=== PATIENT | male | born 1940 | race Caucasian/White ===

== ENCOUNTER → 2016-07-30 | Outpatient (CLI) | payer OTHER ==
[~2016-07-30] MED LIST: AMLO-110 PO; ASCO1CAP3 PO; CALC500C3 PO; CARB0.5D28 OPB; FINA5TAB PO; FLUT0.15 INTNAS; PRD/1 PO; TAMS0.4C38 PO; TYLER650 PO
== END | disposition home or self-care (01) ==
LOC: C.RDSM 13:00
PROVIDERS: ATTEND Physical Medicine & Rehabilitation Sports Medicine
DX: Z96.642 Presence of left artificial hip joint (principal)

== ENCOUNTER → 2016-10-29 | Outpatient (CLI) | payer OTHER | END | disposition home or self-care (01) | LOC: C.RDSM 13:55 | PROVIDERS: ATTEND Physical Medicine & Rehabilitation Sports Medicine | DX: M25.561 Pain in right knee (principal); M25.562 Pain in left knee ==

== ENCOUNTER → 2016-12-05 | Outpatient (CLI) | payer OTHER ==
--- NOTE | 2016-12-05 10:12 | DIAGNOSTIC IMAGING REPORT ---
KUB CLINICAL HISTORY: N39.0 UTI (urinary tract infection)[id number] nephrocalcinosis COMPARISON STUDY: 06/01/2016 FINDINGS: The soft tissues, psoas shadows, renal outlines and intestinal gas pattern appear normal. There is no evidence for bowel obstruction. No abnormal abdominal calcifications are seen. IMPRESSION: Normal study. Electronically signed by: Aubrey Andujar M.D. 12/05/2016 10:10 AM Dictated Date/Time: 12/05/2016 10:09 AM
[2016-12-05 14:24] LABS: BLOOD UREA NITROGEN 17 mg/dl (7-18); BUN/CREATININE RATIO 18.6 (10-20); CREATININE 0.92 mg/dl (0.60-1.40)
--- NOTE | 2016-12-17 11:09 | CODING QUERY MEDICAL NECESSITY ---
SUPPORTING DIAGNOSIS NEEDED Dr. Contreras, A supporting diagnosis is required for the test/procedure performed on this patient in order for us to be reimbursed by the patient's insurance. Please provide a supporting diagnosis for the following test/procedure listed below next to the test name along with your signature. *If there is no additional diagnosis for this patient that would support the following test/procedure please document that below next to the test/procedure. Test(s)/Procedure(s) that require a supporting diagnosis: * [id number] PSA DIAGNOSIS: DATE OF SERVICE: 12/05/16 Provider Signature: Date: Thank you Keith Dumont [facility] Information Management Once completed, please kindly fax back to [phone] For questions please call [phone]
== END | disposition home or self-care (01) ==
LOC: C.RADBC 09:35
PROVIDERS: ATTEND Urology
DX: N39.0 Urinary tract infection, site not specified (principal); N40.1 Benign prostatic hyperplasia with lower urinary tract symptoms

== ENCOUNTER → 2017-05-07 | Outpatient (CLI) | payer OTHER ==
[2017-05-07 10:49] LABS: HEMATOCRIT 33.2 % (42-52); MEAN CELL VOLUME 81.8 fL (80-100); MEAN CORPUSCULAR HEMOGLOBIN 25.4 pg (25-34); MEAN PLATELET VOLUME 8.8 fL (7.4-10.4); PLATELET COUNT 263 K/uL (130-400); RED BLOOD COUNT 4.06 M/uL (4.7-6.1); WHITE BLOOD COUNT 8.42 K/uL (4.8-10.8)
[2017-05-07 11:10] LABS: ALT/SGPT 13 U/L (12-78); AST/SGOT 8 U/L (15-37); BLOOD UREA NITROGEN 21 mg/dl (7-18); BUN/CREATININE RATIO 26.8 (10-20); CALCIUM 9.2 mg/dl (8.5-10.1); CARBON DIOXIDE 28 mmol/L (21-32); CHLORIDE 103 mmol/L (98-107); CREATININE 0.77 mg/dl (0.60-1.40); GLUCOSE 94 mg/dl (70-99); POTASSIUM 3.5 mmol/L (3.5-5.1); SODIUM 136 mmol/L (136-145)
[2017-05-07 11:23] LABS: ALB/GLOB RATIO 0.8 (0.9-2); ALKALINE PHOSPHATASE 83 U/L (45-117); IMMUNOGLOBULN A 46.2 mg/dL (70-400)
[2017-05-09 05:20] LABS: ALBUMIN 3.3 G/DL (3.8-4.8); FREE KAPPA 186.7 MG/L (3.3-19.4); FREE KAPPA/LAMBDA RATIO 24.57 (0.26-1.65); FREE LAMBDA 7.6 MG/L (5.7-26.3); GAMMA GLOBULIN 0.7 G/DL (0.8-1.7); IMMUNOFIXATION IGA SERUM 50 MG/DL (81-463); IMMUNOFIXATION IGG SERUM 666 MG/DL (694-1618); IMMUNOFIXATION IGM SERUM 230 MG/DL (48-271); MONOCLONAL PROTEIN BAND 1 0.3 G/DL (NOT DETECTED); TOTAL PROTEIN 6.1 G/DL (6.2-8.3)
== END | disposition home or self-care (01) ==
LOC: C.LABBC 08:30
PROVIDERS: ATTEND Internal Medicine Hematology & Oncology
DX: D47.2 Monoclonal gammopathy (principal)

== ENCOUNTER → 2017-07-08 | Outpatient (CLI) | payer OTHER | END | disposition home or self-care (01) | LOC: C.RDSM 19:19 | PROVIDERS: ATTEND Physical Medicine & Rehabilitation Sports Medicine | DX: M16.12 Unilateral primary osteoarthritis, left hip (principal); Z96.642 Presence of left artificial hip joint; M79.672 Pain in left foot; Z96.659 Presence of unspecified artificial knee joint ==

== ENCOUNTER 2017-10-30 06:10 | Inpatient (IN) | payer OTHER ==
[2017-10-11 11:22] VITALS: BMI 27.0
--- NOTE | 2017-10-11 12:08 | PAT Medication Instructions ---
Service Date October 11, 2017. Current Home Medication List Acetaminophen (Tylenol), 1,000 MG PO BID Amlodipine (Norvasc), 5 MG PO QAM Ascorbic Acid (Vitamin C), 500 MG PO QAM Calcium Carbonate (Tums), 500 MG PO PRN Carboxymethylcellulose Sodium (Refresh Tears), 1 DROP OPB BID Finasteride (Proscar), 5 MG PO HS Fpltdyybphz-Mygprwninxj-Lze C- (Glucosamine Chondroitin), 1 TAB PO BID Meloxicam (Mobic), 7.5 MG PO QAM Ocuvite Preservision (Ocuvite Preservision), 1 TAB PO QAM Prednisone (Prednisone), 2 MG PO QAM Medication Instructions For Your Scheduled Surgery -Check with your surgeon's office for instructions for: Meloxicam (Mobic), 7.5 MG PO QAM - Hold the following medications 2 weeks prior to surgery: Dzfaagxquga-Upidlzgygdv-Gqz C- (Glucosamine Chondroitin), 1 TAB PO BID Ocuvite Preservision (Ocuvite Preservision), 1 TAB PO QAM - Hold the following medications the morning of surgery: Ascorbic Acid (Vitamin C), 500 MG PO QAM Calcium Carbonate (Tums), 500 MG PO PRN - Take the following medications the morning of surgery with a sip of water: Acetaminophen (Tylenol), 1,000 MG PO BID (can be taken up to four hours before surgery) Amlodipine (Norvasc), 5 MG PO QAM Carboxymethylcellulose Sodium (Refresh Tears), 1 DROP OPB BID (bring with you to the hospital) Prednisone (Prednisone), 2 MG PO QAM - Take the following medications as scheduled the night before surgery: Acetaminophen (Tylenol), 1,000 MG PO BID Carboxymethylcellulose Sodium (Refresh Tears), 1 DROP OPB BID Finasteride (Proscar), 5 MG PO HS If you have any questions please call us at [phone] or [phone] or [phone]
[2017-10-11 12:35] LABS: BASO % 0.5 %; BASO ABS # 0.05 K/uL (0-0.2); EOS ABS # 0.19 K/uL (0-0.5); HEMATOCRIT 32.6 % (42-52); HEMOGLOBIN 10.4 g/dL (14.0-18.0); IG# 0.04 K/uL (0.00-0.02); LYMPH % 13.9 %; LYMPH ABS # 1.31 K/uL (1.2-3.4); MEAN CELL VOLUME 77.4 fL (80-100); MEAN CORPUSCULAR HEMOGLOBIN 24.7 pg (25-34); MEAN CORPUSCULAR HGB CONC 31.9 g/dl (32-36); MEAN PLATELET VOLUME 8.8 fL (7.4-10.4); MONO % 13.5 %; MONO ABS # 1.27 K/uL (0.11-0.59); NEUT % 69.7 %; NEUT ABS # 6.55 K/uL (1.4-6.5); PLATELET COUNT 291 K/uL (130-400); RED CELL DISTRIBUTION WIDTH CV 17.2 % (11.5-14.5); RED CELL DISTRIBUTION WIDTH SD 49.1 fL (36.4-46.3); WHITE BLOOD COUNT 9.41 K/uL (4.8-10.8)
[2017-10-11 12:46] LABS: PTT PATIENT 27.9 SECONDS (21.0-31.0)
[2017-10-11 12:47] LABS: CALCIUM 9.3 mg/dl (8.5-10.1); CREATININE 0.89 mg/dl (0.60-1.40); POTASSIUM 3.9 mmol/L (3.5-5.1)
--- NOTE | 2017-10-11 12:49 | DIAGNOSTIC IMAGING REPORT ---
CHEST 2 VIEWS ROUTINE CLINICAL HISTORY: PAT preoperative evaluation COMPARISON STUDY: 06/20/2015 FINDINGS: Mild stable cardiomegaly. Lungs are clear. The diaphragms are smooth. IMPRESSION: Mild stable cardia megaly. The above report was generated using voice recognition software. It may contain grammatical, syntax or spelling errors. Electronically signed by: Aubrey Andujar M.D. 10/11/2017 12:48 PM Dictated Date/Time: 10/11/2017 12:48 PM
--- NOTE | 2017-10-11 12:53 | DIAGNOSTIC IMAGING REPORT ---
LATERAL CERVICAL SPINE RADIOGRAPHS, INCLUDING FLEXION AND EXTENSION VIEWS CLINICAL HISTORY: Preoperative evaluation. COMPARISON STUDY: No previous studies for comparison. FINDINGS: There is reversal of the normal cervical lordosis. There is no evidence for instability during flexion or extension. Alignment of the C1-C2 articulation remains anatomic. No fracture is identified on this exam. There is marked disc space narrowing at C4-C5 and mild disc space narrowing at C5-C6. Moderate multilevel facet arthrosis is present. IMPRESSION: 1. No evidence for cervical spine instability. 2. Marked disc space narrowing with moderate osteophytosis at C4-C5. Electronically signed by: Joshua Kirby M.D. 10/11/2017 12:52 PM Dictated Date/Time: 10/11/2017 12:50 PM
--- NOTE | 2017-10-28 16:25 | HISTORY & PHYSICAL EXAMINATION ---
DATE OF ADMISSION: 10/30/2017 CHIEF COMPLAINT: Right knee pain. HISTORY OF PRESENT ILLNESS: This 77-year-old white male presented to the office with complaints of right knee pain over the last 6-9 months. Pain has become worse with time. He is now having pain with activities of daily living and just walking. No numbness or tingling. He has tried activity modification as well as oral pain medication and anti-inflammatories without lasting relief. He elects to proceed with surgical intervention in hopes of alleviating his pain. Preoperative imaging has been obtained. He is scheduled for a right knee revision poly exchange versus complete total knee revision of Contreras-Diane knee on 10/30/2017. PAST MEDICAL HISTORY: Significant for hypertension, osteoarthritis, GERD, BPH, history of sarcoidosis, actinic keratoses, elevated lipids, and mild obesity. PREVIOUS SURGERIES: Left wrist carpal tunnel release March 2012, appendectomy 1950, bone marrow biopsy, cataract surgery, colonoscopies, retinal surgery 09/2015, left total hip arthroplasty 06/29/2015, kidney lithotripsy, rotator cuff repair, tonsillectomy with adenoidectomy, trigger finger releases, wisdom tooth extraction, right total knee arthroplasty in 1997. ALLERGIES: KNOWN ALLERGY TO TOPICAL IODINE. CURRENT MEDICATIONS: Amlodipine 5 mg p.o. daily, finasteride 5 mg p.o. daily, Flonase 50 mcg nasal spray at bedtime, glucosamine chondroitin b.i.d., Meloxicam 7.5 mg p.o. daily, Ocuvite tablet p.o. daily, prednisone 1 mg 2 tablets p.o. daily, Tums p.o. at bedtime, Tylenol 1000 mg p.o. b.i.d., vitamin C 500 mg daily, Voltaren 1% topical gel p.r.n., Protonix 40 mg p.o. daily. SOCIAL HISTORY: Patient is . Retired. No tobacco use, occasional ETOH use. FAMILY HISTORY: Significant for colon cancer, otherwise unremarkable. REVIEW OF SYSTEMS: Significant for above-stated conditions, otherwise unremarkable. PHYSICAL EXAMINATION: GENERAL: Well-developed, well-nourished elderly white male in no acute distress. Sitting on a bed. Alert and oriented. SKIN: Warm and dry with fair turgor. No rashes or lesions. No ecchymosis or erythema. HEENT: Normocephalic, atraumatic. Eyes PERRLA, EOMI. Nares patent bilaterally without turbinate enlargement. Oropharynx without erythema or exudate. No lesions noted. Uvula midline. Oral mucosa moist. Fair dentition. Dental bridges are noted. Hearing aids are present. HEART: RRR. No MGR. LUNGS: Clear to auscultation bilaterally. No crackles, rhonchi or wheezing. Good air movement. ABDOMEN: Bowel sounds present x4, soft, nontender. No organomegaly. No masses. MUSCULOSKELETAL: Right knee evaluation reveals a mild intra-articular effusion. He has focal discomfort with palpation over the medial and lateral joint lines. There is also anterior pain with palpation. No defect in the patellar tendon or quadriceps tendon. Lacks just a few degrees of terminal extension. Flexion to greater than 90 degrees. Strength is 5/5 with fair quad tone. Stable collateral ligaments. NEUROLOGIC: Cranial nerves II through XII are intact. Gross sensation is intact across the right leg by soft touch. Peripheral pulses are 2+. 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 No evidence of loosening. IMPRESSION: Right knee retained painful total knee hardware. PLAN: Postoperative prescriptions for Percocet and Coumadin will be provided at discharge from the hospital. Anticipate discharge to home with outpatient PT starting a week postop. Preoperative lab work, EKG, chest x-ray have been ordered. Medical clearance has been requested from his PCP. He already has a cane and walker. Call with any other concerns.
[2017-10-30] VITALS (10 sets, daily range): BP systolic 130–176; BP diastolic 69–85; PULSE 59–74; TEMP 36.4–37.1; O2SAT 95–98; Ht 170.2 cm; Wt 80.1 kg
[~2017-10-30] VITALS: Ht 170.2 cm; Wt 80.1 kg
[~2017-10-30 06:10] MED LIST changes: +ACET-1256 PO; +CEFAZOLIN 2000MG IV PUSH 15 ML IV SCH; -FLUT0.15 INTNAS; +GLUCTAB7 PO; +LACTATED RINGER'S 1000ML 1,000 ML IV SCH; +LACTATED RINGER'S 1000ML IV SCH; +MELO7.5T5 PO; +MULT-190 PO; +ROPIVACAINE 5MG/ML 30 ML 150 MG, BUPIVACAINE 0.5% MPF INJ 30 ML, EpINEphrine HCL INJ 0.... INFIL SCH; -TAMS0.4C38 PO; +TRANEXAMIC ACID INJ 1,000 MG x 1 Bag Preop IV SCH; -TYLER650 PO
--- NOTE | 2017-10-30 06:37 | History & Physical Bridge Note ---
H&P Re-Evaluation Bridge Note: I have examined the patient, reviewed the History & Physical and in the interval since the performance of the History & Physical I have noted the following changes of clinical significance: verified consent.No changes noted
[2017-10-30] MEDS ORDERED: BUPIVACAINE 0.25% 30 ML VIAL ONE (07:20)
[2017-10-30] MEDS ORDERED: MIDAZOLAM HCL 1 MG/ML 2ML VIAL ONE (08:12)
[2017-10-30] MEDS ORDERED: FENTANYL CITRATE INJ 50 MCG/1 ML 2 ML VIAL ONE (08:12)
[2017-10-30] MEDS ORDERED: FENTANYL CITRATE INJ 50 MCG/1 ML 2 ML VIAL IV PRN (08:30)
[2017-10-30] MEDS ORDERED: ONDANSETRON INJ 2 MG/ML 2 ML VIAL IV PRN ×2 (08:30→11:45)
[2017-10-30] MEDS ORDERED: EpHEDrine SULFATE INJ 50 MG/ML AMP IV PRN (08:30)
[2017-10-30] MEDS ORDERED: ATROPINE SULFATE 0.1 MG/ML 5ML SYR IV PRN (08:30)
[2017-10-30] MEDS ORDERED: BUPIVACAINE 0.5 % 5 MG/1 ML PF 10ML VIAL ONE (09:26)
[2017-10-30] MEDS ORDERED: ORTHO JOINT ANESTHETIC ONE (09:32)
[2017-10-30] MEDS ORDERED: BACITRACIN 50000 UNIT VIAL ONE (10:57)
[2017-10-30] MEDS ORDERED: PROPOFOL IV EMULSION 10 MG/ML 20 ML VIAL ONE (11:11)
--- NOTE | 2017-10-30 11:26 | [facility] Post Operative Brief Note ---
Immediate Operative Summary Operative Date October 30, 2017. 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 Cummings Electric Wirer Surgeon(s) LAWRENCE Garcia Estimated Blood Loss 75ml Findings Consistent with Post-Op Diagnosis Specimens A. Removed Hardware Right Knee (poly tibia and patella) Drains None Anesthesia Type MAC Spinal Regional Complication(s) none Disposition Accompanied Pt To Recover: no Overlapping Procedure I was immediately available: during the entire case
[2017-10-30] MEDS ORDERED: ACETAMINOPHEN IV 100 ML IV PRN (11:45)
[2017-10-30] MEDS ORDERED: CALCIUM CARBONATE 500 MG CHEWABLE PO PRN (11:45)
[2017-10-30] MEDS ORDERED: MAGNESIUM HYDROXIDE SUSP 30 ML UDC PO PRN (11:45)
[2017-10-30] MEDS ORDERED: ALUMINUM/MAGNESIUM/SIMETH (MAALOX MAX) 30 ML UDC PO PRN (11:45)
[2017-10-30] MEDS ORDERED: MoRPHine SULFATE 4 MG/ML 1 ML CARP\\VIAL IV PRN (11:45)
[2017-10-30] MEDS ORDERED: METOCLOPRAMIDE HCL INJ 5 MG/ML 2 ML VIAL IV PRN (11:45)
[2017-10-30] MEDS ORDERED: ACETAMINOPHEN 325 MG TAB PO PRN (11:45)
[2017-10-30] MEDS ORDERED: DiphenhydrAMINE HCL 50 MG/ML VIAL IV PRN (11:45)
[2017-10-30] MEDS ORDERED: TAMSULOSIN HCL 0.4 MG CAP PO PRN (11:45)
[2017-10-30] MEDS ORDERED: BISACODYL 10 MG SUPP PR PRN (11:45)
[2017-10-30] MEDS ORDERED: OXYCODONE HCL IR 5 MG TAB (IMMEDIATE RELEASE) PO PRN (11:45)
--- NOTE | 2017-10-30 12:15 | DIAGNOSTIC IMAGING REPORT ---
RIGHT KNEE 2 VIEWS History: Right total knee arthroplasty. Degenerative arthritis. Postop. FINDINGS: The patient is status post a right total knee arthroplasty. The hardware is intact. No fracture or dislocation. Skin flakito are in place. IMPRESSION: Right total knee arthroplasty. No evidence for hardware complication. Electronically signed by: Jayden Aiken M.D. 10/30/2017 12:14 PM Dictated Date/Time: 10/30/2017 12:13 PM
--- NOTE | 2017-10-30 12:41 | OPERATIVE REPORT ---
DATE OF OPERATION: 10/30/2017 SURGEON: Otoniel Cummings MD CLERICAL AND OFFICE SUPPORT WORKERS: Johnathan. No resident or fellow available. PREOPERATIVE DIAGNOSIS: Retained Contreras-Diane II knee, 15 years ago roughly. POSTOPERATIVE DIAGNOSIS: Retained Contreras-Diane II knee, 15 years ago roughly with polyethylene wear of tibia and patella. No loose implants. OPERATIONS PERFORMED: 1. Arthrotomy with extensive synovectomy and debridement of loose poly. 2. Poly exchange and verification of no loose femur or tibia implants, right tibia. 3. Excision of worn patellar button with revision of cemented 3-pronged button. SUMMARY OF IMPLANTS: 1. Contreras-Diane poly 13 mm cruciate sparing. 2. Patella 37 x 10, 3-peg. 3. [place] 2.9 JuggerKnot. PERIOPERATIVE SITUATION: Medically cleared male with intractable developing pain of his knee with x-rays, physical exam consistent with poly wear of the tibiofemoral component. He was advised concerning the potential need for complete revision pending any kind of loosening or scratching of the implants; however, at the time of the procedure it was found that he had worn through completely to the tibia, so that the femur was not scratched but the patella was extremely worn as well. None of the implants were loose. So the patella needed to be carved out as well as removal of the implant. Implants noted as above. ESTIMATED BLOOD LOSS: 75 mL CRYSTALLOID: 1500 mL DESCRIPTION OF PROCEDURE: Patient appropriately identified, site verified, consent verified, 2 grams of Ancef and TXA confirmed as being given. The right lower extremity was prepped and draped in usual routine fashion. Tourniquet inflated to 300 mmHg after exsanguination of limb with a rubber Esmarch bandage for a total of approximately 59 minutes. Midline exposure was utilized. Parapatellar arthrotomy performed. Old sutures were removed. Care was taken not to involve the extensor mechanism. However, there was some slight peel off and this was repaired with the JuggerKnot suture at the end of the case. The patella button was completely worn and had very irregular surfaces. There were marked fragments of poly around, this was all excised. The patella was then removed without fracturing the patella and the areas of the 3 holes is large and the trial tracked well. The femur was completely synovectomized and it was assessed. It was not loose. Same with the tibia, it was assessed and not loose. Poly was completely worn, preferentially medially, but not down the metal and there was no scratching on the femur. The poly was removed. The area was then copiously irrigated. The knee was then trialed with multiple implants and 13 mm was elected to be used that was inserted and it was very stable. Once the patella was removed and all of the soft tissue and cement remnants were removed and the trial tracked well, it was then cemented into position. After 14 minutes, the poly was checked. It was solid, it tracked well. The Orthomix was injected in and around the knee and the incision and then the wound was closed. The JuggerKnot was tied distally. The repair of the medial peel back of the patellar tendon; again it was not completely peeled back. It was just the medial third, but it was felt based on his age and tissue quality, it could be repaired with the JuggerKnot. The additional arthrotomy was closed with #2 Vicryl interrupted sutures, subcutaneous layer with 2-0 Vicryl and the skin with stainless steel clips. Appropriate dressing applied. The patient transferred to recovery room in satisfactory condition having tolerated the procedure well. Again summary of implants, Contreras-Diane II poly 13 mm thick, Contreras-Diane patella 37 x 10, 3-pegged and anchor of JuggerKnot 2.9 x 1. Cement [place] G x1. I attest to the content of the Intraoperative Record and any orders documented therein. Any exception s are noted below.
[2017-10-30] MEDS ORDERED: D5W AND 1/2NSS + 20MEQ KCL 1,000 ML IV SCH (13:15)
[2017-10-30] MEDS: KETOROLAC TROMETHAMINE 15 MG/ML VIAL IV. SCH ×2 (13:21→19:39)
--- NOTE | 2017-10-30 13:52 | Anesthesiology Progress Note ---
Anesthesia Post Op Note Date & Time October 30, 2017 at 13:51 Vital Signs Pain Intensity: 0 Vital Signs Past 12 Hours Date Time Temp Pulse Resp B/P (MAP) Pulse Ox O2 Delivery O2 Flow Rate FiO2 10/30/17 13:40 68 18 149/78 (101) 97 Nasal Cannula 3.0 10/30/17 13:10 74 18 154/76 (102) 96 Nasal Cannula 3.0 10/30/17 12:40 97 Nasal Cannula 2.0 10/30/17 12:39 97 Nasal Cannula 2.0 10/30/17 12:36 36.8 59 18 138/69 (92) 97 Nasal Cannula 2.0 10/30/17 12:10 36.9 61 16 125/64 100 Nasal Cannula 2 10/30/17 12:05 36.9 60 16 97/82 100 Nasal Cannula 2 10/30/17 11:55 45 16 130/75 100 Oxymask 10 10/30/17 11:45 57 16 119/69 100 Oxymask 10 10/30/17 11:35 37.1 60 16 117/94 99 Oxymask 10 10/30/17 06:45 36.9 65 18 176/85 98 Room Air Notes Mental Status: alert / awake / arousable, participated in evaluation Pt Amnestic to Procedure: Yes Nausea / Vomiting: adequately controlled Pain: adequately controlled Airway Patency, RR, SpO2: stable & adequate BP & HR: stable & adequate Hydration State: stable & adequate Neuraxial Anesthesia: was administered, sensory block is resolving Anesthetic Complications: no major complications apparent
--- NOTE | 2017-10-30 15:56 | [facility] Operative Report ---
Operative Report Operative Date October 30, 2017. 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 Cummings Title I Paraprofessional Surgeon(s) LAWRENCE Dorantes Estimated Blood Loss 75ml Findings Right knee tibial tray and patella poly-wear Specimens A. Removed Hardware Right Knee (poly tibia and patella) Drains None Anesthesia Type MAC Spinal Regional Complication(s) none Disposition no Recovery Room / PACU Indications This 77-year-old white male presented to the office with complaints of recurrent and intractable right knee pain that had become worse with time. He had tried activity modification without improvement. Previous total knee arthroplasty over 20 years ago. He elected to proceed with surgical intervention in hopes of alleviating his pain. Risks and benefits were discussed at length. Preoperative imaging was obtained. Description of Procedure Patient was administered a spinal anesthetic and then taken to the operating room where he was given sedation. He was prepped and draped in usual sterile fashion. Please see Dr. Cummings's operative report for specifics of the procedure. I was present for the entire case from initial patient positioning through final wound closure. Assistance was provided tissue retraction, hemostasis, removal of old polyethylene liner, trial implant placement, final implant placement, and final wound closure. Patient was taken to the recovery room in satisfactory condition. I attest to the content of the Intraoperative Record and any orders documented therein. Any exceptions are noted below.
[2017-10-30] MEDS ORDERED: WARF2TAB PO (15:57)
[2017-10-30] MEDS ORDERED: OXYC-57 PO (15:57)
[2017-10-30] MEDS ORDERED: WARFARIN SOD 5 MG TAB PO SCH (16:00)
--- NOTE | 2017-10-30 16:53 | PROGRESS NOTE ---
DATE: 10/30/2017 SUBJECTIVE: Postop right total knee revision patella with a replacement of polyethylene spacer. At this point in time, patient is doing well, has no issues. Denies chest pain, shortness of breath, fever, chills, nausea, vomiting or headache. He is eating well. His neurovascular check is normal. Wound dressing clean, dry and intact. Postop x-rays look excellent. ASSESSMENT: Status post revision of patellar component and exchange of polyethylene for wear, both areas. At this point in time, the patient is doing well, we will discharge likely to home tomorrow. Social service assessment.
--- NOTE | 2017-10-30 17:14 | DISCHARGE SUMMARY ---
doing welDATE OF DISCHARGE: 10/31/2017, conditional. CHIEF COMPLAINT: Right knee pain. HISTORY OF PRESENT ILLNESS: The patient underwent elective revision of his patella implant and poly exchange of his tibial implant, status post Ben Contreras over 15 years ago. At this point in time, the patient has done well. His pain is well managed with the periarticular block and medications. He denies nausea, vomiting, chest pain, shortness of breath, fever or chills. He is eating well. His IV is hep locked. PAST MEDICAL HISTORY: Remarkable for hypertension, osteoarthritis, GERD, BPH, sarcoidosis, actinic keratoses, elevated lipids, and mild obesity. PAST SURGICAL HISTORY: Previous surgeries include carpal tunnel release, appendectomy, bone marrow biopsy, cataract surgery, colonoscopies, retinal surgery, hip replacement on the left, kidney lithotripsy, rotator cuff repair, tonsillectomy, adenoidectomy, trigger finger release, wisdom tooth extraction, and bilateral knee replacements. ALLERGIES: TOPICAL IODINE. PREADMISSION MEDICATIONS: Include amlodipine, finasteride, Flonase, glucosamine, meloxicam, Ocuvite, prednisone, Tums, Tylenol, vitamin C, Voltaren topical gel, Protonix. He will continue all of his medications; also add p.r.n. Percocet. SOCIAL HISTORY: Reveals he is , retired. No tobacco or alcohol use. FAMILY HISTORY: Remarkable for colon cancer. REVIEW OF SYSTEMS: Noncontributory. HOSPITAL COURSE: Has been uneventful. He tolerated the procedure well. He is wiggling his toes well. His postop x-rays look excellent. He is eating well. ASSESSMENT: Status post right knee procedure as noted above with revision of poly exchange tibial implant and revision of complete exchange and replacement of his patella. Tolerated the procedure well. Conditional discharge tomorrow if he does well with PT, OT. Social service has evaluated. He will do outpatient PT. DVT prophylaxis with Coumadin. Keep INR 1.8-2.0. doing well.home today. DAMASO
[2017-10-30] MEDS ORDERED: TRANEXAMIC ACID INJ 1,000 MG in SODIUM CHLORIDE 0.9% 100ML 100 ML IV SCH (17:30)
[2017-10-30] MEDS: FERROUS GLUCONATE 324 MG TAB PO SCH (18:04)
[2017-10-30] MEDS: CEFAZOLIN IV 2,000 MG in SYRINGE 0 ML IV SCH (18:04)
[2017-10-30] MEDS ORDERED: FINASTERIDE 5 MG TAB PO SCH (21:00)
[2017-10-30] MEDS: DOCUSATE SODIUM 100 MG CAP PO SCH (21:03)
[2017-10-31] MEDS: KETOROLAC TROMETHAMINE 15 MG/ML VIAL IV. SCH ×2 (01:57→07:28)
[2017-10-31] MEDS: CEFAZOLIN IV 2,000 MG in SYRINGE 0 ML IV SCH (01:57)
[2017-10-31 03:05] VITALS: BP 154/74; PULSE 72; TEMP 37.1; O2SAT 97
[2017-10-31 05:56] LABS: HEMATOCRIT 27.8 % (42-52); HEMOGLOBIN 8.7 g/dL (14.0-18.0); MEAN CELL VOLUME 76.4 fL (80-100); MEAN CORPUSCULAR HEMOGLOBIN 23.9 pg (25-34); MEAN CORPUSCULAR HGB CONC 31.3 g/dl (32-36); MEAN PLATELET VOLUME 8.4 fL (7.4-10.4); PLATELET COUNT 205 K/uL (130-400); RED CELL DISTRIBUTION WIDTH CV 17.3 % (11.5-14.5); WHITE BLOOD COUNT 13.71 K/uL (4.8-10.8)
[2017-10-31 06:20] LABS: INR 1.1 (0.9-1.1)
[2017-10-31 06:40] LABS: CALCIUM 8.7 mg/dl (8.5-10.1); CREATININE 0.91 mg/dl (0.60-1.40); POTASSIUM 3.9 mmol/L (3.5-5.1)
--- NOTE | 2017-10-31 07:01 | PROGRESS NOTE ---
DATE: 10/31/2017 SUBJECTIVE: Postop check status post revision patellar button and exchange of poly tibia, right total knee replacement. At this point, the patient is doing well, is up and ambulatory. He denies chest pain, shortness of breath, fever, chills, nausea, vomiting or headache. OBJECTIVE: Vital signs are stable. He is afebrile. Hematocrit stable at 27.8, started at 32.6. White count elevated based on stress and steroid stress dose. Wound dressing clean, dry and intact. Neurovascular check femoral sciatic nerve is good. ASSESSMENT AND PLAN: Overall, doing well. Plan is to discharge today after PT, OT to home. He is doing outpatient PT. He is to wear his knee immobilizer for ambulation only. I want him to do that for the next 2 weeks based on the extensor mechanism revision. He understands this. He can take it off to sleep and take it off to sit and rest comfortably. It is only for ambulation.
[2017-10-31 07:25] VITALS: O2SAT 97
[2017-10-31] MEDS ORDERED: DEXAMETHASONE INJ 10 MG in SYRINGE 0 ML IV ONE (07:30)
[2017-10-31 07:50] VITALS: BP 149/78; PULSE 63; TEMP 36.7; O2SAT 95
[2017-10-31 07:52] VITALS: O2SAT 95
--- NOTE | 2017-10-31 08:17 | Anesthesiology Progress Note ---
Anesthesia Post Op Note Date & Time October 31, 2017 at 08:16 Vital Signs Vital Signs Past 12 Hours Date Time Temp Pulse Resp B/P (MAP) Pulse Ox O2 Delivery O2 Flow Rate FiO2 10/31/17 07:52 95 Room Air 10/31/17 07:50 36.7 63 16 149/78 (101) 95 Room Air 10/31/17 07:42 37.1 72 18 97 Room Air 10/31/17 07:25 97 Room Air 10/31/17 03:05 37.1 72 18 154/74 (100) 97 Room Air 10/30/17 23:05 37.1 64 17 155/77 (103) 96 Room Air Notes Mental Status: alert / awake / arousable, participated in evaluation Pt Amnestic to Procedure: Yes Nausea / Vomiting: adequately controlled Pain: adequately controlled Airway Patency, RR, SpO2: stable & adequate BP & HR: stable & adequate Hydration State: stable & adequate Neuraxial Anesthesia: sensory block resolved Anesthetic Complications: no major complications apparent
--- NOTE | 2017-10-31 08:36 | Discharge Instructions ---
Discharge Instructions Date of Service October 30, 2017. Admission Reason for Admission: S/P Right Total Knee Arthroplasty Pain Discharge Discharge Diagnosis / Problem: Right knee s/p poly liner and patellar button exchange Discharge Goals Goal(s): Decrease discomfort, Improve function, Increase independence, Improve disease control Activity Recommendations Activity Limitations: as noted below Lifting Limitations: gradually increase as tolerated Exercise/Sports Limitations: until after follow-up appointment Shower/Bathe: keep incision dry Driving or Machine Use: No driving until cleared by Dr. Cummings Weightbearing Status: Right weightbearing (as tolerated in brace) maximum knee flexion 90 degrees. Keep the knee immobilizer on for ambulation and standing for the next 2 weeks Instructions / Follow-Up Instructions / Follow-Up New Medicine: * You will likely be taking one or more of these medications: 1. Percocet - Take, as directed, when you need it, every four to six hours to control your pain. 2. Coumadin - Thins your blood to lessen the chance of forming a blood clot. The dose of this is different for each person and is based on your blood tests that are done twice a week. * The most common side effects of pain medicine and iron are nausea and constipation. If nausea or constipation is too much of a problem or if you have any questions about your new medicines or doses, call [facility] at . We will try to help you manage these issues. VERY IMPORTANT TO READ AND REVIEW" Blood Clots and Blood Thinning Medicine: * You are given Coumadin during the immediate post-operative period to lessen the risk of blood clots forming in your legs and/or lungs. Coumadin is usually given for six weeks after surgery. * The prescription is for 2 mg tablets. At discharge, you should understand your dose and take it all at the same time every day, preferably after dinner. * You need to get your blood checked 1 - 2 times per week for six weeks or as directed. * If your dose needs to change, we will call you. Do not take your medication on the day of the blood test until we call you. Pain: * The immediate post-operative period after knee replacement surgery is often quite painful. * You are given a prescription for pain medicine. You should take it, as directed, when you need it, especially before physical therapy and before going to bed. Pain that interferes with sleep is very common and can last several months. * You will likely need pain medicine for the first four to six weeks. It will not stop all of the pain. The pain will lessen and as you feel better, you may change to milder pain medicine such as Tylenol. * The most common side effects of pain medicine are nausea and constipation, so don't take more than you need. Physical Therapy: * You will have physical therapy two or three times each week for four to six weeks after your surgery in order to regain your knee range of motion and to retrain your knee to work properly. * It is just as important to make sure you are getting your knee perfectly straight as it is to regain your knee bend. * Taking a pain pill an hour before therapy can help you have a more productive and comfortable therapy session if needed. Home Exercise: * You were shown a series of exercises (heel props, heel slides, etc.) in the hospital. Do these exercises three to four times each day including the exercises you were shown in physical therapy. Walking: * Get up and walk several times each day. For the first four weeks, try not to stand or walk for more than one hour at a time. If you do stand or walk for more than one hour, you will not hurt anything, but your knee and leg will likely swell. * As you feel comfortable, you may change from the walker or crutches to a cane and then to independent walking. SELF CARE INSTRUCTIONS AFTER TOTAL KNEE REPLACEMENT A. You may need to continue a physical therapy program after discharge from the hospital. There are several options available to you. Your doctor will assist you in selecting the best one for you. 1. An out-patient facility 2 to 3 times a week for therapy or home therapy. 2. Continue working on all exercises taught to you in the hospital. Your goals should be to increase bending of your knee to 90 degrees and beyond and to fully straighten your knee. B. You may progress at your own pace from walking with a walker or crutches to a cane; then to no assistive devices. C. Make walking a part of your daily routine. Be up as much as comfortable with rest periods throughout the day. Rest with leg elevation is very important. Use the ice wrap frequently for the first 3-4 weeks. D. There are no restrictions on activities. You may ride in a car, shop, participate in learning and development officer and all social activities. E. Wear the long elastic stockings (JT hose) 20 hours a day for six weeks after surgery. They can be removed several times a day for laundering and for a shower. F. Do not place a pillow behind your knee when resting. A pillow at your ankle is okay. VERY IMPORTANT TO READ AND REVIEW A. Take Coumadin, Aspirin or Lovenox (blood thinning medications) as directed by your doctor. If on Coumadin, have a pro-time (blood test) drawn according to your doctor's instructions. This will tell the doctor how well the Coumadin is thinning your blood. 1. YOU WILL BE GIVEN AN ORDER AT DISCHARGE FOR PT/INR (BLOOD WORK). PLEASE HAVE THIS DONE INSTRUCTED. PLEASE CALL OUR OFFICE AFTER YOUR BLOODWORK IS COMPLETE SO WE CAN TRACK YOUR RESULTS. IF YOU ARE GOING TO OUTPATIENT PHYSICAL THERAPY, YOU WILL NEED TO GO TO OUTPATIENT TESTING TO HAVE IT DRAWN. B. There are a few signs you need to watch for after you are home. Call [facility] if you notice any of the followin. Increased severe knee pain. Some pain is expected especially when you exercise. 2. Increased swelling in your leg or knee; pain or swelling of the calf muscle in either lower leg. 3. Any fluid drainage from the incision. 4. Shortness of breath or chest pain. C. Please call [facility] at if you have any concerns or questions about your operation or recovery. The doctor or his nurse will return your call promptly. D. You must take antibiotics before dental work, bladder, bowel or other surgery. Call the office to obtain a prescription at least 2 days prior to your appointment. * CALL IF INCREASED PAIN, REDNESS, DRAINAGE OR FEVER GREATER THAT 101. * Sutures should be removed 12-14 days after surgery unless you are on chronic steriods, then it will be 14-18 days after surgery. Call your doctor if: * Temperature above 101 degrees F. * Pain not relieved by pain medicine ordered. * Increased drainage or redness from incision. * Notify your doctor with any questions or concerns. Current Hospital Diet Patient's current hospital diet: Regular Diet Discharge Diet Recommended Diet: Regular Diet Procedures Procedures Performed: Right Total Knee Revision with poly exchange of tiba and patella Pending Studies Studies pending at discharge: no Medical Emergencies . Who to Call and When: Medical Emergencies: If at any time you feel your situation is an emergency, please call 911 immediately. . Non-Emergent Contact Non-Emergency issues call your: Primary Care Provider, Surgeon Call Non-Emergent contact if: temperature is above 101, wound has increased drainage, wound has increased redness, wound has increased pain, you have any medication questions . "Provider Documentation" section prepared by Baldev Mann PA-C. . [facility] Search Results: no issues identified
[2017-10-31] MEDS ORDERED: PANTOprazole SOD 40 MG TAB PO SCH (09:00)
[2017-10-31] MEDS ORDERED: AMLODIPINE BESYLATE 5 MG TAB PO SCH (09:00)
[2017-10-31] MEDS ORDERED: MULTIVITAMIN TAB PO SCH (09:00)
[2017-10-31] MEDS ORDERED: CEROVITE ADV FORMULA TAB PO SCH (09:00)
--- NOTE | 2017-10-31 09:03 | Orthopedic Progress Note ---
Orthopedic Progress Note Date of Service October 31, 2017. Subjective Post OP Day: 1 Reports: feeling well, pain controlled w PO medications, Denies: complaints, chest pain, SOB, nausea / vomiting, light headedness, calf pain Additional Notes: States he feels good. Feels ready to go home. Objective calves soft nontender, N/V intact, capillary refill less than 2 sec., dressing C /D/I, incision C/D/I, A&O x3, toes mobile, CMS intact dry drainage on dressings. No active bleeding. Able to do a straight leg raise. expected post op edema. Date Time Temp Pulse Resp B/P (MAP) Pulse Ox O2 Delivery O2 Flow Rate FiO2 10/31/17 07:52 95 Room Air 10/31/17 07:50 36.7 63 16 149/78 (101) 95 Room Air 10/31/17 07:42 37.1 72 18 97 Room Air 10/31/17 07:25 97 Room Air 10/31/17 03:05 37.1 72 18 154/74 (100) 97 Room Air 10/30/17 23:05 37.1 64 17 155/77 (103) 96 Room Air 10/30/17 19:47 36.7 70 16 138/76 (96) 97 Room Air 10/30/17 19:40 Room Air 10/30/17 16:43 36.6 64 18 141/76 (97) 97 Room Air 10/30/17 16:20 36.9 60 16 130/74 (92) 95 Room Air 10/30/17 16:05 Nasal Cannula 10/30/17 15:35 36.4 62 18 133/69 (90) 95 Nasal Cannula 2.0 10/30/17 13:40 68 18 149/78 (101) 97 Nasal Cannula 3.0 10/30/17 13:10 74 18 154/76 (102) 96 Nasal Cannula 3.0 10/30/17 12:40 97 Nasal Cannula 2.0 10/30/17 12:39 97 Nasal Cannula 2.0 10/30/17 12:36 36.8 59 18 138/69 (92) 97 Nasal Cannula 2.0 10/30/17 12:10 36.9 61 16 125/64 100 Nasal Cannula 2 10/30/17 12:05 36.9 60 16 97/82 100 Nasal Cannula 2 10/30/17 11:55 45 16 130/75 100 Oxymask 10 10/30/17 11:45 57 16 119/69 100 Oxymask 10 10/30/17 11:35 37.1 60 16 117/94 99 Oxymask 10 Laboratory Results 24 Hours: Test 10/31/17 05:37 Hematocrit 27.8 % Hemoglobin 8.7 g/dL Prothromb Time International Ratio 1.1 Prothrombin Time 11.4 SECONDS Assessment & Plan Assessment: Right knee post op day 1 poly revision tibial tray and patella. Plan: PT/OT today D/C to home after lunch dressings changed by me. Wound looks very good follow up at the office on Saturday to start outpatient PT coumadin per nomogram Keep knee immobilizer on for ambulation/standing for the next 2 weeks. Discharge Planning Discharge Planning: home Pain Management: Percocet DVT Prophylaxis: TEDs, SCDs, Coumadin Therapy: Physical Therapy
[2017-10-31] MEDS: FERROUS GLUCONATE 324 MG TAB PO SCH ×2 (09:07→12:03)
[2017-10-31] MEDS: DOCUSATE SODIUM 100 MG CAP PO SCH (09:08)
[2017-10-31 11:08] VITALS: BP 150/75; PULSE 81; TEMP 36.9; O2SAT 95
[2017-10-31 12:27] VITALS: BP 159/87; PULSE 79; TEMP 36.8; O2SAT 95
[2017-10-31] MEDS ORDERED: WARFARIN SOD 5 MG TAB PO SCH (16:00)
== END 2017-10-31 14:27 | disposition home or self-care (01) | DRG 468 ==
LOC: C.ACU 06:10 → C.3E 06:34 → ENRESERV 11:59
PROVIDERS: ADMIT Physical Medicine & Rehabilitation Sports Medicine; ATTEND Physical Medicine & Rehabilitation Sports Medicine
PROC: 0SRV0J9 Replacement of Right Knee Joint, Tibial Surface with Synthetic Substitute, Cemented, Open Approach (ICD-10-PCS; principal; 2017-10-30 09:00)
PROC: 0QRD0JZ Replacement of Right Patella with Synthetic Substitute, Open Approach (ICD-10-PCS; principal; 2017-10-30 09:00)
PROC: 0SPV0JZ Removal of Synthetic Substitute from Right Knee Joint, Tibial Surface, Open Approach (ICD-10-PCS; principal; 2017-10-30 09:00)
PROC: 0SPC0JC Removal of Synthetic Substitute from Right Knee Joint, Patellar Surface, Open Approach (ICD-10-PCS; principal; 2017-10-30 09:00)
PROC: 0LQQ0ZZ Repair Right Knee Tendon, Open Approach (ICD-10-PCS; principal; 2017-10-30 09:00)
DX: T84.062A Wear of articular bearing surface of internal prosthetic right knee joint, initial encounter (principal); Y83.1 Surgical operation with implant of artificial internal device as the cause of abnormal reaction of the patient, or of later complication, without mention of misadventure at the time of the procedure; Z96.653 Presence of artificial knee joint, bilateral; S86.211A Strain of muscle(s) and tendon(s) of anterior muscle group at lower leg level, right leg, initial encounter; X58.XXXA Exposure to other specified factors, initial encounter; I10 Essential (primary) hypertension; K21.9 Gastro-esophageal reflux disease without esophagitis; N40.0 Benign prostatic hyperplasia without lower urinary tract symptoms; E66.9 Obesity, unspecified; Z68.27 Body mass index [BMI] 27.0-27.9, adult; Z86.2 Personal history of diseases of the blood and blood-forming organs and certain disorders involving the immune mechanism; Z87.2 Personal history of diseases of the skin and subcutaneous tissue; Z87.442 Personal history of urinary calculi; Z96.642 Presence of left artificial hip joint; Z90.49 Acquired absence of other specified parts of digestive tract; Z98.890 Other specified postprocedural states; Z79.1 Long term (current) use of non-steroidal anti-inflammatories (NSAID); Z79.52 Long term (current) use of systemic steroids; Z79.899 Other long term (current) drug therapy; Z91.048 Other nonmedicinal substance allergy status; Z80.0 Family history of malignant neoplasm of digestive organs

== ENCOUNTER 2021-10-11 05:01 | Observation (INO) ==
--- NOTE | 2021-09-19 16:27 | PAT Medication Instructions ---
Medication Instructions Date of Service September 19, 2021 Home Medications acetaminophen 500 mg tablet (Tylenol Extra Strength) 1,000 mg PO BID amlodipine 5 mg tablet 5 mg PO QAM ascorbic acid (vitamin C) 500 mg tablet (Vitamin C) 500 mg PO QAM aspirin 325 mg tablet 325 mg PO QAM cetirizine 10 mg tablet (Zyrtec) 10 mg PO QAM finasteride 5 mg tablet 5 mg PO QPM glucosamine sulfate 500 mg-chondroitin 200 mg-msm 150 mg tablet 1 tab PO BID meloxicam 7.5 mg tablet 7.5 mg PO BID multivitamin 1 tab PO QAM prednisone 1 mg tablet 2 mg PO QAM amlodipine 2.5 mg tablet 2.5 mg PO QAM famotidine 20 mg tablet (Pepcid) 20 mg PO QAM naphazoline 0.012 % eye drops 1 drp OPHTHALMIC (EYE) TID PRN ASK your surgeon for instructions meloxicam 7.5 mg tablet 7.5 mg PO BID ASK your prescriber and surgeon aspirin 325 mg tablet 325 mg PO QAM STOP taking 2 weeks before surgery glucosamine sulfate 500 mg-chondroitin 200 mg-msm 150 mg tablet 1 tab PO BID DO NOT take the morning of surgery ascorbic acid (vitamin C) 500 mg tablet (Vitamin C) 500 mg PO QAM cetirizine 10 mg tablet (Zyrtec) 10 mg PO QAM multivitamin 1 tab PO QAM Take morning of surgery With a small sip of water, OTHERWISE NOTHING TO EAT OR DRINK AFTER MIDNIGHT: acetaminophen 500 mg tablet (Tylenol Extra Strength) 1,000 mg PO BID(okay to take up to 4 hours prior to surgery if needed) amlodipine 5 mg tablet 5 mg PO QAM amlodipine 2.5 mg tablet 2.5 mg PO QAM prednisone 1 mg tablet 2 mg PO QAM famotidine 20 mg tablet (Pepcid) 20 mg PO QAM naphazoline 0.012 % eye drops 1 drp OPHTHALMIC (EYE) TID PRN(if needed) Take evening before surgery acetaminophen 500 mg tablet (Tylenol Extra Strength) 1,000 mg PO BID finasteride 5 mg tablet 5 mg PO QPM naphazoline 0.012 % eye drops 1 drp OPHTHALMIC (EYE) TID PRN(if needed) Other Notes If you have any questions please call us at [phone] or [phone] or [phone] or [phone]
--- NOTE | 2021-09-25 11:38 | Anesthesiology Consultation ---
Date of Service September 25, 2021 Assessment & Plan (1) Encounter for pre-operative examination: - COVID screening: Per assessment on 09/25: No known COVID-19 positive contacts or current COVID-19 related symptoms. Travel screen negative. Surgeon arranging preop COVID testing. Awaiting results. - S/P Revision right TKA with polyexchange of tibia + patella (10/30/17): SAB at L3-4 (x1 attempt) + PNB at [facility]. No issues per post-op anesthesia progress note. - Patient acceptable risk for surgery pending surgeon-ordered PCP preop evaluation (appointment done 09/25; Dr. Molina's office). Chart Review Chart Review: Patient seen in Pre Admission Testing Teaching & Discussion Pre-Anesthesia Teaching/Discussion Notes: Instructed NPO after midnight before surgery,except medications with 15 cc of water. Medication instructions provided according to the PAT guidelines. History Surgery Operation Date: 08/23/21 07:00 Proposed Procedures p Right Total Hip Arthroplasty - Otoniel Cummings MD Operation Date: 10/11/21 07:00 Proposed Procedures p Right Total Hip Arthroplasty - Otoniel Cummings MD Height/Weight Height: 5 ft 6 in Weight: 76 kg Allergies Allergy/AdvReac Type Severity Reaction Status Date / Time grass pollen-perennial rye, Allergy Mild TREE/GRASS-ITCHY Verified 09/14/21 15:21 standar EYES, STUFFY NOSE iodine Allergy Mild RASH WITH Verified 09/14/21 15:21 TOPICAL mustard Allergy Mild REACTION Verified 09/14/21 15:21 TO PATCH TEST-DOESN'T EAT Penicillins Allergy Unknown UNKNOWN Verified 09/14/21 15:21 adhesive AdvReac Mild REDNESS Verified 09/14/21 15:21 SKIN WITH SOME BANDAIDS Medications Home Medications Medication Instructions Recorded Confirmed Last Taken acetaminophen 500 mg tablet 1,000 mg PO BID 09/15/20 09/14/21 Unknown (Tylenol Extra Strength) amlodipine 5 mg tablet 5 mg PO QAM 09/15/20 09/14/21 Unknown ascorbic acid (vitamin C) 500 mg 500 mg PO QAM 09/15/20 09/14/21 Unknown tablet (Vitamin C) aspirin 325 mg tablet 325 mg PO QAM 09/15/20 09/14/21 Unknown cetirizine 10 mg tablet (Zyrtec) 10 mg PO QAM 09/15/20 09/14/21 Unknown finasteride 5 mg tablet 5 mg PO QPM 09/15/20 09/14/21 Unknown glucosamine sulfate 500 1 tab PO BID 09/15/20 09/14/21 Unknown mg-chondroitin 200 mg-msm 150 mg tablet meloxicam 7.5 mg tablet 7.5 mg PO BID 09/15/20 09/14/21 Unknown multivitamin 1 tab PO QAM 09/15/20 09/14/21 Unknown prednisone 1 mg tablet 2 mg PO QAM 09/15/20 09/14/21 Unknown acetaminophen 500 mg tablet 500 mg PO QDL 09/14/21 09/14/21 Unknown (Acetaminophen Extra Strength) amlodipine 2.5 mg tablet 2.5 mg PO QAM 09/14/21 09/14/21 Unknown famotidine 20 mg tablet (Pepcid) 20 mg PO QAM 09/14/21 09/14/21 Unknown naphazoline 0.012 % eye drops 1 drp OPHTHALMIC (EYE) TID PRN 09/14/21 09/14/21 Unknown Past Medical History Medical History Anemia BPH (benign prostatic hypertrophy) with urinary retention Cardiomegaly "Mild" per 09/25/21 CXR Chronic steroid use Pt states for his arthritis - he is unsure if hx rheumatoid arthritis (no cervical extension/flexion limitations per PAT visit 09/25/21) DJD (degenerative joint disease) of hip GERD (gastroesophageal reflux disease) Hearing deficit History of kidney stones Hyperlipidemia Hypertension Osteoarthritis Scoliosis Exercise / Class Metabolic Activity II 4-5 Yardwork/Stairs/Walk up hill (one FS (no CP, no SOB)) Past Family History Family History Other Family history non-contributory No family history of adverse response to anesthesia Past Surgical History Surgical History History of appendectomy History of bilateral cataract extraction History of carpal tunnel surgery of left wrist History of colonoscopy History of cystoscopy History of detached retina repair x2--1 on each eye History of ear surgery bilateral--at the age of 2 "to open them up" History of esophagogastroduodenoscopy (EGD) History of lithotripsy History of revision of total replacement of right knee joint Revision right TKA with polyexchange of tibia + patella (10/30/17): SAB at L3- 4 (x1 attempt) + PNB at [facility]. No issues per post-op anesthesia progress note. History of tonsillectomy and adenoidectomy History of tooth extraction partial lower denture History of total left hip arthroplasty History of total left knee replacement (TKR) History of total right knee replacement (TKR) History of wisdom tooth extraction Status post trigger finger release right middle finger Past Anesthesia History No Hx of Anesthesia Complications and No Family Hx of Anesthesia Complications History of PONV No Hx of PONV and No Hx of Motion Sickness Social History Smoking Status: Former smoker Do You Dip or Chew Tobacco: No Smoking End Date: Quit 1971 Hx Alcohol Use: Yes ("one glass of wine and a vodka tonic every evening") Alcohol type: wine and hard liquor alcohol intake frequency: 0-2 drinks per day (2 drinks/day) Hx Substance Use: No substance use type: does not use Review of Systems Patient denies chest pain, shortness of breath, dyspnea on exertion, fever, chills, cough, wheezing, palpitations. Physical Exam Vital Signs VITALS BP 153/71 P 73 TEMP 98.1 SP02 99%RA RESP 16 PHYSICAL Full cervical extension range of motion. Full TMJ range of motion. TMD 3 finger breaths Mallampati Score 2 Dentition: lower partial Lungs: clear throughout to auscultation Cardiac: regular rate and rhythm, I/ systolic murmur Spine: normal Carotid arteries: negative bruit Extremities: no edema Lab Results Anesthesia Preop Results Results Anesthesia Widget: WBC 9.39 K/uL (4.8-10.8) 09/25/21 Hgb 10.4 g/dL (14.0-18.0) L 09/25/21 Hct 33.2 % (42-52) L 09/25/21 Plt 222 K/uL (130-400) 09/25/21 Na 140 mmol/L (136-145) 09/25/21 K 3.9 mmol/L (3.5-5.1) 09/25/21 Cl 105 mmol/L (98-107) 09/25/21 CO2 27 mmol/L (21-32) 09/25/21 BUN 19 mg/dl (6-23) 09/25/21 Creat 0.79 mg/dl (0.6-1.4) 09/25/21 Glucose Level 93 mg/dl (70-99(Fasting)) 09/25/21 PT 11.6 Seconds (9.0-12.0) 09/25/21 PTT 27.9 Seconds (21.0-31.0) 09/25/21 INR 1.1 (0.9-1.1) 09/25/21 Urine Color Yellow 09/25/21 Urine Appearance Clear (Clear) 09/25/21 Urine pH 6.5 (4.5-7.5) 09/25/21 Urine Specific [place] 1.016 (1.000-1.030) 09/25/21 Urine Protein 1+ (Negative) H 09/25/21 Urine Glucose (UA) Negative (Negative) 09/25/21 Urine Ketones Negative (Negative) 09/25/21 Urine Blood Negative (Negative) 09/25/21 Urine Nitrite Negative (Negative) 09/25/21 Urine Bilirubin Negative (Negative) 09/25/21 Urine Urobilinogen Negative (Negative) 09/25/21 Urine Leukocyte Esterase Negative (Negative) 09/25/21 Urine WBC (Auto) 0 /hpf (0-5) 09/25/21 Urine RBC (Auto) 0-4 /hpf (0-4) 09/25/21 Urine Hyaline Casts (Auto) 1-5 /lpf (0-5) 09/25/21 Urine Epithelial Cells (Auto) 0-5 /lpf (0-5) 09/25/21 Urine Bacteria (Auto) Negative (Negative) 09/25/21 Blood Type O Positive 09/25/21 Antibody Screen NEGATIVE 09/25/21 Testing Laboratory Results Chronic anemia- stable Electrocardiogram Date: 09/25/21 SB at 58bpm. NS STA. No significant change compared to 10/11/17 per stenotypist review. Chest X-Ray Date: 09/25/21 FINDINGS: Lung volumes are normal. No pneumothorax or pleural effusion is present. Mild cardiomegaly is noted without evidence for pulmonary edema. There is no consolidation to suggest pneumonia. A 1.2 cm irregular nodular density along the left heart border is unchanged since radiographs of September 2020. This favors scarring. IMPRESSION: No acute cardiopulmonary findings. Mild cardiomegaly. Echocardiogram Date: 11/23/19 EF 50-55%. Mild to moderate hypokinesis of the apical anterior lateral wall. Moderate concentric LVH. Moderate LAD/RAD. Mild AV sclerosis. RVSP elevated 30-40 mmHg.
--- NOTE | 2021-09-26 16:42 | History & Physical Report ---
Date of Service September 26, 2021 Assessment & Plan (1) Degenerative joint disease of right hip: Plan: Postoperative prescriptions for Percocet and Coumadin will be provided at discharge from the hospital. Anticipate discharge to home with outpatient services. PT appointment has already been made for the Saturday after surgery. The patient has already seen his PCP for medical clearance. He has known chronic anemia that is stable. He has had known iron deficiency patterns for over 20 years. He did not require transfusions after his knee replacements. He has seen hematology and no source has been identified according to the PCP note. The patient is aware of COVID-19 risks associated with surgery. He is currently asymptomatic of any COVID-19 symptoms. He will obtain nasal swab testing on the Saturday prior to surgery. PDMP was checked and there are no co ncerning findings. The patient already has a walker and cane at home. Postop followup appointment has already been made with me for 10/26 at 1:00 p.m. for staple removal. History of Present Illness Chief Complaint: Right hip pain Primary Care Provider: Baldev Molina DO This 81-year-old male presents for his preoperative history and physical. He is scheduled to undergo a right total hip arthroplasty on 10/11/2021. The patient has had right hip pain since March 2021. No specific injury or trauma. Pain has become worse with time. He initially thought the pain was coming from the knee. It seems to be centered at his hip and radiates toward the knee. Pain is worse with weightbearing. It does bother him at night. It does wake him from sleep. He has tried activity modification without improvement. He is using a cane for ambulation. He has a previous left total hip arthroplasty and did well with that until a recent fall. No numbness or tingling. Preoperative imaging has been obtained. Allergies Allergy/AdvReac Type Severity Reaction Status Date / Time grass pollen-perennial rye, Allergy Mild TREE/GRASS-ITCHY Verified 09/14/21 15:21 standar EYES, STUFFY NOSE iodine Allergy Mild RASH WITH Verified 09/14/21 15:21 TOPICAL mustard Allergy Mild REACTION Verified 09/14/21 15:21 TO PATCH TEST-DOESN'T EAT Penicillins Allergy Unknown UNKNOWN Verified 09/14/21 15:21 adhesive AdvReac Mild REDNESS Verified 09/14/21 15:21 SKIN WITH SOME BANDAIDS Home Medications Medication Instructions Recorded Confirmed Type acetaminophen 500 mg tablet 1,000 mg PO BID 09/15/20 09/14/21 History (Tylenol Extra Strength) amlodipine 5 mg tablet 5 mg PO QAM 09/15/20 09/14/21 History ascorbic acid (vitamin C) 500 mg 500 mg PO QAM 09/15/20 09/14/21 History tablet (Vitamin C) aspirin 325 mg tablet 325 mg PO QAM 09/15/20 09/14/21 History cetirizine 10 mg tablet (Zyrtec) 10 mg PO QAM 09/15/20 09/14/21 History finasteride 5 mg tablet 5 mg PO QPM 09/15/20 09/14/21 History glucosamine sulfate 500 1 tab PO BID 09/15/20 09/14/21 History mg-chondroitin 200 mg-msm 150 mg tablet meloxicam 7.5 mg tablet 7.5 mg PO BID 09/15/20 09/14/21 History multivitamin 1 tab PO QAM 09/15/20 09/14/21 History prednisone 1 mg tablet 2 mg PO QAM 09/15/20 09/14/21 History acetaminophen 500 mg tablet 500 mg PO QDL 09/14/21 09/14/21 History (Acetaminophen Extra Strength) amlodipine 2.5 mg tablet 2.5 mg PO QAM 09/14/21 09/14/21 History famotidine 20 mg tablet (Pepcid) 20 mg PO QAM 09/14/21 09/14/21 History naphazoline 0.012 % eye drops 1 drp OPHTHALMIC (EYE) TID PRN 09/14/21 09/14/21 History Past Med/Surg History Medical History (Updated 09/26/21 @ 16:41 by Baldev Mann PA-C) Anemia BPH (benign prostatic hypertrophy) with urinary retention Cardiomegaly "Mild" per 09/25/21 CXR Chronic steroid use Pt states for his arthritis - he is unsure if hx rheumatoid arthritis (no cervical extension/flexion limitations per PAT visit 09/25/21) DJD (degenerative joint disease) of hip GERD (gastroesophageal reflux disease) Hearing deficit History of kidney stones Hyperlipidemia Hypertension Monoclonal gammopathy Osteoarthritis Pulmonary sarcoidosis Scoliosis Surgical History (Updated 09/26/21 @ 16:37 by Baldev Mann PA-C) History of appendectomy History of bilateral cataract extraction History of carpal tunnel surgery of left wrist History of colonoscopy History of cystoscopy History of detached retina repair x2--1 on each eye History of ear surgery bilateral--at the age of 2 "to open them up" History of esophagogastroduodenoscopy (EGD) History of lithotripsy History of repair of rotator cuff History of revision of total replacement of right knee joint Revision right TKA with polyexchange of tibia + patella (10/30/17): SAB at L3- 4 (x1 attempt) + PNB at [facility]. No issues per post-op anesthesia progress note. History of tonsillectomy and adenoidectomy History of tooth extraction partial lower denture History of total left hip arthroplasty History of total left knee replacement (TKR) History of total right knee replacement (TKR) History of wisdom tooth extraction Status post trigger finger release right middle finger Family History (Updated 09/26/21 @ 16:39 by Baldev Mann PA-C) Mother Colon cancer Brother Colon cancer Other Family history non-contributory No family history of adverse response to anesthesia Social History (Updated 09/26/21 @ 16:38 by Baldev Mann PA-C) Smoking Status: Former smoker Second Hand Exposure: No; Hx Alcohol Use: Yes ("one glass of wine and a vodka tonic every evening") Alcohol type: wine and hard liquor Hx Substance Use: No Preferred Language: Greek Communication Ability: Effective 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 Physical Exam Physical Exam: Vitals: Height 168.5 cm, weight 77.8 kilograms, BMI 27.4, temperature 36.4, BP 130/70, pulse 79, O2 sat 100% on room air, respiratory rate 16. General: Well-developed, well-nourished, elderly white male in no acute distress. Sitting in a chair. Alert and oriented. Skin: Warm and dry with good turgor. No rashes. No ecchymosis or edema. HEENT: Normocephalic, atraumatic. Eyes: PERRLA, EOMI. Nares and oropharynx exams deferred due to COVID precautions. Heart: RRR. 2/6 systolic murmur noted. No gallops or rubs. Lungs: Clear to auscultation bilaterally. No crackles, rhonchi or wheezing. Good air movement. Abdomen: Bowel sounds present x4, soft, nontender. No organomegaly. No masses. Musculoskeletal: Right hip evaluation reveals no obvious asymmetry or deformity. There is supple motion. External rotation of only around 20 degrees secondary to pain. Internal rotation of around only 15 degrees before onset of pain. Good hip flexion. He does have groin pain associated with flexion as well as rotation. He ambulates today with an antalgic gait using his cane. No pain with palpation over the IT band, quadriceps, greater trochanter, or iliac crest. There is pain with palpation over the anterior flexion crease. No palpable crepitus. Neurologic: Gross sensation is intact across both lower extremities by soft touch. Peripheral pulses are 2+. Results & Data Results & Data ([facility]) Diagnostic Findings Radiographic imaging previously obtained of the pelvis and hip shows end-stage DJD of the right hip with Cam lesion. Periarticular osteophytes, subchondral sclerosis, and joint space narrowing are all present. Code Status & VTE Plan VTE Prophylaxis Plan VTE Prophylaxis will be ordered: Yes
[~2021-10-11 05:01] MED LIST changes: -ACET-1256 PO; +ALLERGY Noted to ORDERED Medication SCH; -AMLO-110 PO; -ASCO1CAP3 PO; -CALC500C3 PO; -CARB0.5D28 OPB; -CEFAZOLIN 2000MG IV PUSH 15 ML IV SCH; -FINA5TAB PO; -GLUCTAB7 PO; -LACTATED RINGER'S 1000ML 1,000 ML IV SCH; -LACTATED RINGER'S 1000ML IV SCH; -MELO7.5T5 PO; -MULT-190 PO; -PRD/1 PO; -ROPIVACAINE 5MG/ML 30 ML 150 MG, BUPIVACAINE 0.5% MPF INJ 30 ML, EpINEphrine HCL INJ 0.... INFIL SCH; -TRANEXAMIC ACID INJ 1,000 MG x 1 Bag Preop IV SCH
--- NOTE | 2021-10-11 05:55 | History & Physical Bridge Note ---
Date of Service October 11, 2021 History & Physical Bridge Note I have examined the patient, reviewed the History & Physical and in the interval since the performance of the History & Physical I have noted the following changes of clinical significance: consent obtained/site verified/covid screen negative.no changes noted
[2021-10-11] MEDS ORDERED: TRANEXAMIC ACID 1,000 MG **IV Pre-op IV SCH (06:00)
[2021-10-11] MEDS ORDERED: LR 60ML/HR IV SCH (06:00)
[2021-10-11] MEDS ORDERED: LR 500ML BOLUS, THEN 15ML/HR IV SCH (06:00)
[2021-10-11] MEDS ORDERED: ceFAZolin 2000MG 2,000 MG/15 ML SYR IV SCH (06:00)
[2021-10-11] MEDS ORDERED: ROPIVACAINE 0.5% HCL/PF 150 MG, BUPIVACAINE 0.75% MPF 20 ML, EPINEPHrine 30MG/30ML (OR ... INSTIL SCH (06:00)
[2021-10-11] MEDS ORDERED: MIDAZOLAM HCL 1 MG/ML 2ML VIAL ONE ×2 (06:13→07:23)
[2021-10-11] MEDS ORDERED: BUPIVACAINE 0.5 % 5 MG/1 ML PF 10ML VIAL ONE (06:15)
[2021-10-11] MEDS ORDERED: ceFAZolin 2,000 MG/15 ML IV PUSH IV ONE (06:18)
[2021-10-11] MEDS ORDERED: fentaNYL citrate 100 MCG/2 ML VIAL ONE (06:24)
[2021-10-11] MEDS ORDERED: PROPOFOL IV EMULSION 10 MG/ML 20 ML VIAL IV ONE ×2 (06:25→10:31)
[2021-10-11] MEDS ORDERED: LIDOCAINE 2% 2 ML VIAL/AMP(20MG/ML) INFIL ONE (06:25)
[2021-10-11] MEDS ORDERED: ONDANSETRON INJ 2 MG/ML 2 ML VIAL ONE (06:26)
[2021-10-11] MEDS ORDERED: ORTHO JOINT ANESTHETIC ONE (06:50)
[2021-10-11] MEDS ORDERED: ePHEDrine sulfate 50 MG/ML AMP ONE (07:35)
[2021-10-11] MEDS ORDERED: PHENYLEPHRINE HCL 10 MG/ML VIAL ONE (07:35)
--- NOTE | 2021-10-11 08:39 | Post Operative Brief Note ---
Immediate Post Op Note v1 Date of Surgery October 11, 2021 Pre & Post Diagnosis Operation Date: 08/23/21 07:00 <No data on this case meets the specified criteria> Operation Date: 10/11/21 07:00 Pre-Op Diagnosis: Right Hip Degenerative Joint Disease Post-Op Diagnosis: Right Hip Degenerative Joint Disease I identified the patient and participated in the time-out.: Yes Procedure Operation Date: 08/23/21 07:00 <No data on this case meets the specified criteria> Operation Date: 10/11/21 07:00 Actual Procedures p Right Total Hip Arthroplasty(Right) - Otoniel Cummings MD Surgeon Otoniel Cummings MD Nnp ruben/Jose MS 2 Estimated Blood Loss 200 Findings Consistent with Post-Op Diagnosis
--- NOTE | 2021-10-11 08:52 | Operative Report ---
Post Operative Report Pre & Post Diagnosis Operation Date: 08/23/21 07:00 <No data on this case meets the specified criteria> Operation Date: 10/11/21 07:00 Pre-Op Diagnosis: Right Hip Degenerative Joint Disease Post-Op Diagnosis: Right Hip Degenerative Joint Disease I identified the patient and participated in the time-out.: Yes Procedure Operation Date: 08/23/21 07:00 <No data on this case meets the specified criteria> Operation Date: 10/11/21 07:00 Actual Procedures p Right Total Hip Arthroplasty(Right) - Otoniel Cummings MD Surgeon DWAIN Cummings MD Belt Builder ruben/Jose MS 2 Estimated Blood Loss 200 Findings Consistent with Post-Op Diagnosis see operative report Specimens see operative report Drains none Complications none Disposition Accompanied Patient To Recovery: Yes Indications This 81-year-old male presented to the office with complaints of persisting right hip pain. He had tried conservative care measures without improvement. He elected to proceed with surgical intervention after being educated about potential risks and outcomes. Preoperative imaging was obtained. Medical clearance was also obtained. Description of Procedure Patient was administered a spinal anesthetic and then taken to the operating room where he was given sedation. He was prepped and draped in the usual sterile fashion. Please see Dr. Cummings's operative report for specifics of the procedure. I was present for the entire case from initial patient positioning through final wound closure. Assistance was provided in tissue retraction, hemostasis, trial implant placement, final implant placement, and final wound closure. Patient was taken to the recovery room in satisfactory condition. I attest to the content of the Intraoperative Record and any orders documented therein. Any exceptions are noted below.
[2021-10-11] MEDS ORDERED: VANCOMYCIN HCL 1,250 MG in SODIUM CHLORIDE 0.9% 250 ML IV ONE (09:00)
[2021-10-11] MEDS ORDERED: ePHEDrine sulfate 50 MG/ML AMP IV PRN (09:08)
[2021-10-11] MEDS ORDERED: ATROPINE SULFATE 0.1 MG/ML 10ML SYR IV PRN (09:08)
[2021-10-11] MEDS ORDERED: ONDANSETRON INJ 2 MG/ML 2 ML VIAL IV PRN ×2 (09:08→10:03)
[2021-10-11] MEDS ORDERED: fentaNYL citrate 100 MCG/2 ML VIAL IV PRN (09:08)
[2021-10-11] MEDS ORDERED: FLUMAZENIL 0.1 MG/1 ML 10 ML VIAL IV PRN (09:08)
[2021-10-11] MEDS ORDERED: PROMETHAZINE HCL 12.5 MG in SODIUM CHLORIDE 0.9% 50 ML IV PRN (09:08)
[2021-10-11] MEDS ORDERED: HYDROmorphone INJ 1 MG/ML SYRINGE IV PRN (09:08)
[2021-10-11] MEDS ORDERED: NALOXONE HCL 0.4 MG/1 ML VIAL/CARP IV PRN ×2 (09:08→10:03)
--- NOTE | 2021-10-11 09:14 | Operative Report (OR) ---
DATE OF PROCEDURE: 10/11/2021. SURGEON: Otoniel Cummings MD INSTRUCTIONAL TECHNOLOGY FACILITATOR: Baldev Mann PA-C. No resident or fellow available. MS2 student is Romana Jose. PREOPERATIVE DIAGNOSIS: Osteoarthritis, right hip, with Cam and pincer impingement. POSTOPERATIVE DIAGNOSIS: Osteoarthritis, right hip, with cam and pincer impingement. OPERATION PERFORMED: Noncemented right total hip replacement. PERIOPERATIVE SITUATION: Perioperatively, the patient managed with NSAIDs, etc., failed conservative management. Has been struggling with this for years. Had a hip replacement done on the opposite narinder e. Recently fell and got a greater trochanteric Haywood A type fracture on that side. Stable. He is walking, he is doing well. He wants to proceed with right total hip replacement. He understands the risks and consequences. SUMMARY OF IMPLANTS: A size 56 acetabular shell sector cup, hole eliminator, cancellous screw 25 x 6 .5. The liner was 36 x 56 neutral. Femur is a high offset Tri-Lock. Femoral head is a 36+5 ceramic head. These are all DePuy implants. ESTIMATED BLOOD LOSS: 200 mL. CRYSTALLOID: Per anesthesia. PATHOLOGY: Pending on bone. DESCRIPTION OF PROCEDURE: The patient was appropriately identified, site verified, consent verified. Antibiotics were confirmed as being given. The right lower extremity was prepped and draped in the usual routine fashion with the patient in the left lateral decubitus position. Care was taken to ap propriately pad and protect the axilla and the lower extremity peroneal nerve on the left. Leg lengt hs were slightly short on the right. Once he was prepped and draped in the usual routine fashion, th e posterior approach to the hip was made. Sharp dissection carried through skin, blunt dissection do wn to fascia. The IT band and gluteal kenzie fascia were then split. The sciatic nerve was palpate d and visible, it was protected. Retractors placed. The short external rotators were released. The capsule was T'd. The hip dislocated. The femoral neck resected. The soft tissue was debrided from the acetabulum and then reamed up to 54. A 54 cup would not grab appropriately, so it was reamed to 55 and a 56 cup impacted into position with excellent purchase. Additional screw was then placed 6. 5 x 25 with good purchase. Pelvis moved as a unit. There were no issues noted. A trial liner was t hen seated. The femur was then flexed and internally rotated. The dust box worker was used to prepare th e proximal femur followed by the canal finder, the lateralizing rasp, and serial broaching up to a si ze 5. Size 5 high offset with a +5 head matched the opposite side and everything looked excellent. Hip stability was excellent. All trial implants were then removed. The wound irrigated with Betadine Pulsavac, and then hole elim inator seated, permanent liner seated, permanent head and stem seated, the hip reduced. It was stabl e in all planes. The wound was irrigated with Betadine and Pulsavac, and then the capsule and the sh ort external rotators closed with #2 Vicryl. The gluteus kenzie fascia IT band closed with #2 Vicryl , the subcutaneous layer with #2 Vicryl for the deep, 2-0 Vicryl for the superficial, and stainless s sony clips for skin. Appropriate dressing applied. The patient was transferred to recovery room in satisfactory condition, having tolerated the procedure well. Pathology pending on bone. EBL 200 mL crystalloid per anesthesia. Implant sizes noted above. Job ID: [id number]
--- NOTE | 2021-10-11 09:17 | Progress Notes ---
SUBJECTIVE: Postop check. The patient is arousable and awake and answers commands appropriately and questions appropriately. Denies any chest pain, shortness of breath, fever, chills, nausea, vomitin g or headache. OBJECTIVE: VITAL SIGNS: Stable. He is afebrile. He is stable in room air 97% saturated. His wound dressing clean, dry and intact. His neurovascular check is limited by the spinal, but is s tarting to wear off. X-rays are pending. ASSESSMENT AND PLAN: Attempted to reach his . She cannot be located in the hospital, she does n ot have a cell phone. I instructed everyone that he is in the recovery room and doing well. X-ray p ending. Dictated and not read. Job ID: [id number]
--- NOTE | 2021-10-11 09:22 | Discharge Summary (DS) ---
DATE OF ADMISSION: 10/11/2021. POST-PROCEDURE DISCHARGE: 10/12/2021. CHIEF COMPLAINT: Right hip pain. HISTORY OF PRESENT ILLNESS: The patient underwent elective right total hip replacement. [facility] [place] [facility] [place]ful to date. ALLERGIES: IODINE, MUSTARD, PENICILLINS, but he can tolerate cephalosporins, adhesives. GRASS AND P OLLENS. PREADMISSION MEDICATIONS: Please see medication reconciliation sheet. PAST MEDICAL HISTORY: Remarkable for cardiomegaly, anemia, DJD, monoclonal gammopathy, hyperlipidemi a, hypertension, pulmonary sarcoidosis, scoliosis, history of kidney stones. PAST SURGICAL HISTORY: Remarkable for appendectomy, cataracts, carpal tunnels, colonoscopies, lithot ripsies, rotator cuff repair, bilateral knee replacements, left hip replacement. FAMILY HISTORY: Remarkable for colon cancer. SOCIAL HISTORY: Reveals he is , former smoker. Secondhand smoke at this point none. Social a lcohol. He is and lives with his spouse. REVIEW OF SYSTEMS: Noncontributory. ASSESSMENT AND PLAN: Status post right total hip replacement. Continue with care pathway. Hayder farnsworth discharge tomorrow. Job ID: [id number]
--- NOTE | 2021-10-11 09:36 | XRay Report ---
XR pelvis 1V supine HISTORY: 81 years-old Male S/P R ANGELA right hip total joint arthroplasty COMPARISON: CT pelvis and pelvis radiographs 07/03/2021, pelvis radiographs 08/11/2021. TECHNIQUE: AP view of the pelvis FINDINGS: Left hip total joint arthroplasty is unchanged. Healing subacute left greater trochanteric fracture w ith unchanged alignment. Right hip total joint arthroplasty demonstrates satisfactory alignment. No u nexpected opaque foreign bodies. Lateral skin flakito are noted along with expected postoperative sof t tissue swelling with deep tissue air. Vascular calcifications are noted. IMPRESSION: 1. Right hip total joint arthroplasty with expected postoperative changes. 2. Healing subacute left greater trochanteric fracture. ACT 112: Negative or not required by law. The above report was generated using voice recognition software. It may contain grammatical, syntax o r spelling errors. Electronically signed by: Ismael Rob M.D. 10/11/2021 9:35 AM
[2021-10-11] MEDS ORDERED: bisacodyL 10 MG SUPP PR PRN (10:03)
[2021-10-11] MEDS ORDERED: diphenhydrAMINE 50 MG/ML VIAL IV PRN (10:03)
[2021-10-11] MEDS ORDERED: HYDROmorphone INJ 0.5 MG/0.5 ML SYR IV PRN (10:03)
[2021-10-11] MEDS ORDERED: TAMSULOSIN HCL 0.4 MG CAP PO PRN (10:03)
[2021-10-11] MEDS ORDERED: SODIUM CHLORIDE 0.9% 1000ML 1,000 ML IV SCH (10:03)
[2021-10-11] MEDS ORDERED: oxyCODONE HCL IR 5 MG TAB (IMMEDIATE RELEASE) PO PRN (10:03)
[2021-10-11] MEDS ORDERED: METOCLOPRAMIDE HCL INJ 5 MG/ML 2 ML VIAL IV PRN (10:03)
[2021-10-11] MEDS ORDERED: MAGNESIUM HYDROXIDE SUSP 30 ML UDC PO PRN (10:03)
--- NOTE | 2021-10-11 10:07 | Anesthesiology Progress Note ---
Date of Service October 11, 2021 Anesthesia Post Procedure Vital Signs Vital Signs: Temp Pulse Pulse Resp BP Pulse Ox 10/11/21 09:40 36.6 C 73 20 118/76 92 10/11/21 09:30 80 19 129/70 92 10/11/21 09:20 69 12 119/64 98 10/11/21 09:10 77 18 125/64 95 10/11/21 09:00 68 14 121/62 99 10/11/21 08:51 36.4 C L 78 16 112/65 97 10/11/21 05:30 37.2 C 71 20 132/79 97 Pain Intensity Right Hip: Pain Intensity: 2 Transfer of Care Handoff Completed per policy Notes Mental Status: alert / awake / arousable Patient Amnestic to Procedure: Yes Nausea / Vomiting: adequately controlled Pain: adequately controlled Airway Patency, RR, SpO2: stable & adequate BP & HR: stable & adequate Hydration State: stable & adequate Neuraxial Anesthesia: was administered and sensory block is resolving Anesthetic Complications: no major complications apparent
[2021-10-11] MEDS: amLODIPine BESYLATE 5 MG TAB PO SCH ×2 (11:14)
[2021-10-11] MEDS: CETIRIZINE HCL 10 MG TABLET PO SCH (11:15)
[2021-10-11] MEDS: KETOROLAC TROMETHAMINE 15 MG/ML VIAL IV SCH ×3 (11:15→23:19)
[2021-10-11] MEDS: DOCUSATE SODIUM 100 MG CAP PO SCH ×2 (11:21→21:54)
[2021-10-11] MEDS: FAMOTIDINE 20 MG TAB PO SCH (11:21)
--- NOTE | 2021-10-11 12:06 | Progress Notes ---
SUBJECTIVE: Postop check status post right total hip replacement. He is doing well, has no major issues. He denies chest pain, shortness of breath, fever, chills, nausea, vomiting or headache. He is awake and alert and oriented x3. Follows commands. Lower extremity dressing intact. Sciatic nerve reveals dorsiflexion and plantarflexion of the foot and ankle, has good inversion, eversion. Quad function, femoral nerve intact. IMAGING: X-rays, AP pelvis centered on the hips reveal well-fixed, well-aligned hip replacement bilaterally. He has good healing trochanteric fracture on the left, acute new total hip replacement on the right, everything looks good. ASSESSMENT: Doing well. Continue with postoperative care pathway. Discharge home tomorrow. Mobilized EDGAR. Job ID: [id number] [facility] HEALTHFlavio
[2021-10-11] MEDS: MULTIVITAMIN TAB PO SCH (13:07)
[2021-10-11] MEDS: ACETAMINOPHEN 500 MG TAB PO SCH ×2 (13:07→21:53)
[2021-10-11] MEDS ORDERED: ORTHO WARFARIN NOMOGRAM SCH (14:00)
[2021-10-11] MEDS ORDERED: TRANEXAMIC ACID / 0.7% NACL 1,000 MG/100 ML BAG IV SCH (15:00)
[2021-10-11] MEDS ORDERED: WARFARIN SOD 5 MG TAB PO SCH (16:00)
[2021-10-11] MEDS: ceFAZolin 2000MG 2,000 MG/15 ML SYR IV SCH ×2 (16:10→23:18)
[2021-10-11] MEDS: ASCORBIC ACID 500 MG TAB PO SCH (16:12)
[2021-10-11] MEDS: FERROUS GLUCONATE 324 MG TAB PO SCH (16:12)
[2021-10-11] MEDS ORDERED: FINASTERIDE 5 MG TAB PO SCH (21:00)
[2021-10-11] MEDS ORDERED: SENNA 8.6 MG TAB PO SCH (21:00)
[2021-10-12] MEDS: ACETAMINOPHEN 500 MG TAB PO SCH (05:52)
[2021-10-12] MEDS: KETOROLAC TROMETHAMINE 15 MG/ML VIAL IV SCH (05:56)
[2021-10-12 07:54] LABS: Basophils # (auto) 0.02 K/uL (0-0.2); Basophils % (auto) 0.2 %; Eosinophils # (auto) 0.08 K/uL (0-0.5); Eosinophils % (auto) 0.8 %; Hematocrit (blood only) 26.6 % (42-52); Hemoglobin 8.4 g/dL (14.0-18.0); Immature Granulocytes # (auto) 0.02 K/uL (0.00-0.02); Immature Granulocytes % (auto) 0.2 %; Lymphocytes # (auto) 1.58 K/uL (1.2-3.4); Lymphocytes % (auto) 15.1 %; Mean Corpuscular Hgb Conc 31.6 g/dL (32-36); Mean Corpuscular Volume 85.5 fL (80-100); Mean Platelet Volume 9.3 fL (7.4-10.4); Monocytes # (auto) 1.24 K/uL (0.11-0.59); Monocytes % (auto) 11.9 %; Neutrophils % (auto) 71.8 %; Platelet Count 173 K/uL (130-400); RDW Coefficient of Variation 16.5 % (11.5-14.5); Red Blood Count 3.11 M/uL (4.7-6.1); White Blood Count 10.44 K/uL (4.8-10.8)
[2021-10-12 08:00] LABS: INR 1.2 (0.9-1.1); Prothrombin Time 12.2 Seconds (9.0-12.0)
[2021-10-12] MEDS ORDERED: dexAMETHasone 10 MG in SYRINGE 0 ML IV SCH (08:00)
[2021-10-12 08:26] LABS: BUN Creatinine Ratio 29.5 (10-20); Calcium 8.6 mg/dl (8.5-10.1); Creatinine Clr Calc Pharmacy 65.9 ml/min; Est GFR (African American) 97.4 ml/min; Est GFR (Non-African American) 84.1 ml/min; Potassium 3.8 mmol/L (3.5-5.1)
--- NOTE | 2021-10-12 08:33 | Progress Notes ---
SUBJECTIVE: Doing well, sitting up in bed, awake and alert. Denies chest pain, shortness of breath, fever, chills, nausea, vomiting, or headache. OBJECTIVE: Vital Signs are stable. He is afebrile. Neurovascular check femoral sciatic nerve is normal. Hip is located. Dressing clean, dry and intact. ASSESSMENT AND PLAN: Doing well. Discharged home today. Coumadin dose per nomogram. Job ID: [id number]
[2021-10-12] MEDS ORDERED: WARFARIN SOD 5 MG TAB PO ONE (11:13)
[2021-10-12] MEDS: ASCORBIC ACID 500 MG TAB PO SCH (11:17)
[2021-10-12] MEDS: amLODIPine BESYLATE 5 MG TAB PO SCH ×2 (11:18→11:20)
[2021-10-12] MEDS: FERROUS GLUCONATE 324 MG TAB PO SCH (11:18)
[2021-10-12] MEDS: CETIRIZINE HCL 10 MG TABLET PO SCH (11:20)
[2021-10-12] MEDS: FAMOTIDINE 20 MG TAB PO SCH (11:21)
[2021-10-12] MEDS: DOCUSATE SODIUM 100 MG CAP PO SCH (11:21)
[2021-10-12] MEDS: MULTIVITAMIN TAB PO SCH (11:22)
== END 2021-10-12 12:49 | disposition home or self-care (01) ==
LOC: 3W 05:01 → ASU 05:01 → SUPCPDRO 08:59

== ENCOUNTER 2024-05-26 16:08 | Observation (INO) ==
--- NOTE | 2024-05-26 16:14 | ED Triage Note ---
Date of Service May 26, 2024 Provider in Triage Author: Barbie Tran History of Present Illness This patient was briefly evaluated while in triage. An abbreviated physical exam was performed. This patient is a 84-year-old Male who presents to the ED for evaluation hx of HTN, dyslipidemia left axillary pain overnight while sleeping - gone now now upper chest pain with deep breaths Physical Exam GENERAL: NAD CARDIOVASCULAR: RRR RESPIRATORY: CTA ABDOMEN: BS x 4. Nontender to palpation. Initial orders for labs and / or imaging were placed and patient was placed in the waiting area until a bed is available. Please see further documentation for the full ED course.
[2024-05-26 16:49] LABS: Basophils # (auto) 0.06 K/uL (0.00-0.20); Basophils % (auto) 0.6 %; Eosinophils # (auto) 0.29 K/uL (0.00-0.50); Eosinophils % (auto) 2.9 %; Hematocrit (blood only) 29.1 % (42.0-52.0); Immature Granulocytes # (auto) 0.03 K/uL (0.01-0.20); Immature Granulocytes % (auto) 0.3 %; Lymphocytes # (auto) 2.02 K/uL (1.20-3.40); Mean Corpuscular Hemoglobin 25.4 pg (25.0-34.0); Mean Corpuscular Hgb Conc 30.9 g/dL (32.0-36.0); Monocytes # (auto) 1.34 K/uL (0.11-0.59); Monocytes % (auto) 13.3 %; Neutrophils # (auto) 6.37 K/uL (1.40-6.50); Neutrophils % (auto) 62.9 %; Platelet Count 138 K/uL (130-400); RDW Coefficient of Variation 16.6 % (11.5-14.5); RDW Standard Deviation 49.7 fL (36.4-46.3); Red Blood Count 3.55 M/uL (4.70-6.10); White Blood Count 10.11 K/ul (4.8-10.8)
--- NOTE | 2024-05-26 16:56 | XRay Report ---
EXAM: Radiograph of the Chest 1 View INDICATION: Chest and left axillary pain during respiration. TECHNIQUE: Frontal view of the chest. COMPARISON: 11/12/2021 FINDINGS: Lungs and pleural spaces: Minimal parenchymal scarring in the left lower lung. No consolidation or pulmonary edema. No pleural effusion or pneumothorax. Heart: Stable cardiomegaly accentuated by technique. Mediastinum: Normal contour. Bones/joints: There is moderate to severe degenerative change of the shoulder. There are old left rib fractures. Degenerative changes noted in the spine. No acute osseous abnormality. Soft tissues: No abnormality noted. No radiopaque foreign body noted. Vasculature: Stable dilated ectatic aorta with arch calcification. Upper abdomen: No abnormality noted. IMPRESSION: Stable chronic changes. No acute disease. ACT 112: Negative or not required by law. Electronically signed by Kerrie Hyde 05-26-2024 4:56 PM
[2024-05-26 16:57] LABS: Albumin Globulin Ratio 1.2 (0.9-2); Albumin Level 3.7 gm/dl (3.4-5.0); BUN Creatinine Ratio 28.1 (10-20); Bilirubin,Total 0.3 mg/dl (0.2-1.0); Calcium 9.3 mg/dl (8.6-10.3); Creatinine Clr Calc Pharmacy 54.8 ml/min; Globulin 3.1 gm/dl (2.5-4.0); Magnesium 1.9 mg/dl (1.7-2.4); Potassium 3.8 mmol/L (3.5-5.1); Total Protein 6.8 gm/dl (6.0-8.3)
[2024-05-26 17:03] LABS: Troponin I High Sensitivity 3.5 pg/ml (0-20)
[2024-05-26 17:12] LABS: Thyroid Stimulating Hormone 1.06 uIu/ml (0.300-4.500)
[2024-05-26 17:28] LABS: INR 1.1 (0.9-1.1); Partial Thromboplastin Time 27 Seconds (21-31); Prothrombin Time 11.9 Seconds (9.0-12.0)
--- NOTE | 2024-05-26 18:37 | Emergency Department Note ---
Impression & Plan Chest pain, Fever, Pulmonary edema, Atrial fibrillation ED Provider Note HISTORY OF PRESENT ILLNESS: Patient is an 84-year-old male presenting with chest pain. Patient reports that he woke up from sleep at 3 AM today with pain under his left lateral chest and left armpit. Reports that the pain lasted for about 40 minutes and he repositions himself on the bed and was able to go back to sleep. Reports that he then woke up later in the morning and was feeling fine and went to the [facility] for his normal cycling class. He states that at around 3 PM he felt very tired and tried to lay down for a nap, but started having left-sided chest pain. He currently is complaining of chest pain diffusely across his chest. He reports it feels very sharp and he is unable to take of breath without having pain. He denies ever having pain like this before. Denies any anticoagulation or antiplatelet use. Denies any history of cardiac stents. Denies any DVT or PE history. He currently rates his pain a 6 out of 10. Denies any radiation to the back. Denies any headache or changes in vision. ROS: as above PHYSICAL EXAM: Constitutional: Patient appears in no acute distress. HENT: Head: Normocephalic and atraumatic. Eyes: EOMI, PERRL Mouth/Throat: Mucous membranes moist. Neck: Trachea midline. Neck supple. Cardiovascular: Irregularly irregular rhythm. No murmurs, rubs or gallops. Intact distal pulses. Pulmonary/Chest: No respiratory distress. Breath sounds clear and equal bilaterally. No wheezes or rales. No chest wall tenderness to palpation. Abdominal: Abdomen soft, no tenderness, rebound or guarding. Musculoskeletal: No edema, tenderness or deformity noted. Skin: Warm and dry. No rash, erythema, pallor or cyanosis Psychiatric: Appropriate mood and affect for situation. Neurological: Alert and keenly responsive. CN II-XII grossly intact, moving all extremities equally and fully. MDM: - Vitals signs showed hypertension and tachycardia. - History obtained via patient. History as above. - Chronic conditions affecting care: HTN; HLD; cardiomegaly; GERD; pulmonary sarcoidosis - Differential diagnoses include, but are not limited to: Acute coronary syndrome; pulmonary embolism; dissection; tension pneumothorax; esophageal rupture; pneumonia - Order placed for continuous cardiac monitoring. At this time, monitor showed rate of 110 bpm with irregular rhythm, per my interpretation. - External medical records reviewed. Echocardiogram from 11/23/2019 was reviewed. Patient had an EF of 60%. Noted to have some left ventricular hypertrophy. - EKG interpreted by myself showed atrial fibrillation. Rate 92 bpm. QT 358. No acute ischemic changes. - Laboratory workup interpreted by myself showed normal WBC; anemia (Hgb 9.0); normal PT/INR; stable electrolytes; normal troponin; normal TSH; normal lipase - Patient given 50 mcg IV fentanyl in ER for chest pain. - CXR negative for pneumonia, per my interpretation - Repeat troponin within normal limits - Patient did develop a fever in the emergency department. He was given 1 g of IV Tylenol. - Viral respiratory panel negative - UA negatve -Patient noted to have a topical iodine allergy. He reports he is never had a IV contrast before. He was pretreated with 40 mg of IV Solu-Medrol and 25 mg IV Benadryl. - CT PE negative for pulmonary embolism. Noted to have interseptal thickening concerning for pulmonary edema and trace bilateral pleural effusions. - BNP and lyme added to workup - Discussed results with patient. He is still complaining of some slight chest discomfort and now complaining of some shortness of breath. Will admit to hospitalist service for further workup. Patient is noted to not have had an echocardiogram since November 2019. He is also not been noted to be in A-fib before. - Discussion was had with senior case manager about patient's case and need for admission - Hospitalist, Dr. White, consulted for admission - Patient admitted to [facility] hospitalist service for further evaluation and management. ASSESSMENT AND PLAN: Diagnosis: Chest pain; fever; pulmonary edema; Atrial fibrillation Plan: admit Past Med/Surg History Problem List (Updated 05/26/24 @ 23:17 by Sheba Damian MD) Atrial fibrillation (Acute) Pulmonary edema (Acute) Fever (Acute) Chest pain (Acute) Degenerative joint disease of right hip Encounter for pre-operative examination Carpal tunnel syndrome (Chronic) Encounter for [place] catheter removal (Acute) Retained orthopedic hardware Urinary tract infection (Acute) Hypertension (Chronic) Hyperlipidemia (Chronic) BPH (benign prostatic hypertrophy) with urinary retention (Acute) DJD (degenerative joint disease) of hip Medical History Anemia BPH (benign prostatic hypertrophy) with urinary retention Cardiomegaly "Mild" per 09/25/21 CXR Chronic steroid use Pt states for his arthritis - he is unsure if hx rheumatoid arthritis (no cervical extension/flexion limitations per PAT visit 09/25/21) DJD (degenerative joint disease) of hip GERD (gastroesophageal reflux disease) Hearing deficit History of kidney stones Hyperlipidemia Hypertension Monoclonal gammopathy Osteoarthritis Pulmonary sarcoidosis Scoliosis Surgical History History of appendectomy History of bilateral cataract extraction History of carpal tunnel surgery of left wrist History of colonoscopy History of cystoscopy History of detached retina repair x2--1 on each eye History of ear surgery bilateral--at the age of 2 "to open them up" History of esophagogastroduodenoscopy (EGD) History of lithotripsy History of repair of rotator cuff History of revision of total replacement of right knee joint Revision right TKA with polyexchange of tibia + patella (10/30/17): SAB at L3- 4 (x1 attempt) + PNB at [facility]. No issues per post-op anesthesia progress note. History of tonsillectomy and adenoidectomy History of tooth extraction partial lower denture History of total left hip arthroplasty History of total left knee replacement (TKR) History of total right knee replacement (TKR) History of wisdom tooth extraction Status post trigger finger release right middle finger Family History Mother Colon cancer Brother Colon cancer Other Family history non-contributory No family history of adverse response to anesthesia Social History Smoking Status: Never smoker Second Hand Exposure: No; Do You Dip or Chew Tobacco: No; Hx Alcohol Use: Yes ("one glass of wine and a vodka tonic every evening") Alcohol type: wine and hard liquor Hx Substance Use: No Preferred Language: German Communication Ability: Effective Director Of Business Services Required: No Beliefs That Will Affect Care: None marital status: Current Living Situation: Spouse current occupational status: retired Feels Safe at Home: Yes Assistive Devices: Walker Allergies Allergies Allergy/AdvReac Type Severity Reaction Status Date / Time grass pollen-perennial rye, Allergy Mild TREE/GRASS-ITCHY Verified 11/12/21 15:18 standar EYES, STUFFY NOSE iodine Allergy Mild RASH WITH Verified 11/12/21 15:18 TOPICAL mustard Allergy Mild REACTION Verified 11/12/21 15:18 TO PATCH TEST-DOESN'T EAT Penicillins Allergy Unknown UNKNOWN Verified 11/12/21 15:18 adhesive AdvReac Mild REDNESS Verified 11/12/21 15:18 SKIN WITH SOME BANDAIDS Home Meds Home Medications Medication Instructions Recorded Confirmed acetaminophen 500 mg tablet 1,000 mg PO BID 09/15/20 11/12/21 (Tylenol Extra Strength) ascorbic acid (vitamin C) 500 mg 500 mg PO QAM 09/15/20 11/12/21 tablet (Vitamin C) cetirizine 10 mg tablet (Zyrtec) 10 mg PO QAM 09/15/20 11/12/21 finasteride 5 mg tablet 5 mg PO QPM 09/15/20 11/12/21 multivitamin 1 tab PO QAM 09/15/20 11/12/21 prednisone 1 mg tablet 2 mg PO QAM 09/15/20 11/12/21 amlodipine 2.5 mg tablet 2.5 mg PO QAM 09/14/21 11/12/21 famotidine 20 mg tablet (Pepcid) 20 mg PO QAM 09/14/21 11/12/21 naphazoline 0.012 % eye drops 1 drp ophthalmic (eye) TID PRN 09/14/21 11/12/21 Allergy Symptoms aspirin 81 mg tablet,delayed 81 mg PO DAILY 11/12/21 11/12/21 release vohytlsikvf-dek-szmcbyble-hrb 2 tab PO BID 11/12/21 11/12/21 149-hyalur 500 mg-500 mg-66.7 mg tablet (Qysmkmbbzvb-Oyprpbzzykz-WPS (with antiox)) meloxicam 7.5 mg tablet 7.5 mg PO BID 11/12/21 11/12/21 warfarin 2 mg tablet 2 mg PO DAILY 11/12/21 11/12/21 Previous Rx's Medication Instructions Recorded oxycodone-acetaminophen 5 mg-325 2 tab PO Q6H PRN pain #24 tabs 10/12/21 mg tablet (Percocet) Results & Data (ED) Vital Signs Vital Signs - 24 hr 05/26/24 16:12 05/26/24 18:42 12/17/24 18:42 Temperature 36.7 C Temperature Source Temporal Artery Scan Pulse Rate 91 H Pulse Rate [Apical] 76 Pulse Rhythm Respiratory Rate 18 20 Respiratory Effort / Characteristics Non-Labored Spontaneous Respiratory Depth Normal Respiratory Pattern Regular Blood Pressure 149/87 H Blood Pressure [Left Arm] 117/87 Blood Pressure Mean 107 Blood Pressure Mean [Left Arm] 97 Pulse Oximetry 96 96 96 Oxygen Delivery Method Room Air Room Air Room Air Oxygen Flow Rate Sepsis Recent Fever Within 48 Hours No Sepsis New/Unexplained Change in Mental Status N/A Sepsis Action Taken by Nursing No Action Required 05/26/24 18:50 05/26/24 18:50 05/26/24 19:30 Temperature Temperature Source Pulse Rate 86 90 Pulse Rate [Apical] 80 Pulse Rhythm Regular Respiratory Rate 20 23 Respiratory Effort / Characteristics Spontaneous Respiratory Depth Normal Respiratory Pattern Regular Blood Pressure Blood Pressure [Left Arm] 145/86 H Blood Pressure Mean Blood Pressure Mean [Left Arm] 105 Pulse Oximetry 95 94 Oxygen Delivery Method Room Air Nasal Cannula Oxygen Flow Rate 2 Sepsis Recent Fever Within 48 Hours Sepsis New/Unexplained Change in Mental Status Sepsis Action Taken by Nursing 05/26/24 20:57 05/26/24 22:37 05/26/24 22:40 Temperature 37.7 C H Temperature Source Oral Pulse Rate 106 H Pulse Rate [Apical] 95 H 110 H Pulse Rhythm Respiratory Rate 20 22 Respiratory Effort / Characteristics Respiratory Depth Respiratory Pattern Blood Pressure Blood Pressure [Left Arm] 134/95 Blood Pressure Mean Blood Pressure Mean [Left Arm] 108 Pulse Oximetry 95 95 Oxygen Delivery Method Nasal Cannula Room Air Oxygen Flow Rate 2 Sepsis Recent Fever Within 48 Hours Sepsis New/Unexplained Change in Mental Status Sepsis Action Taken by Nursing 05/26/24 22:58 Temperature 37.9 C H Temperature Source Oral Pulse Rate Pulse Rate [Apical] Pulse Rhythm Respiratory Rate Respiratory Effort / Characteristics Respiratory Depth Respiratory Pattern Blood Pressure Blood Pressure [Left Arm] Blood Pressure Mean Blood Pressure Mean [Left Arm] Pulse Oximetry Oxygen Delivery Method Oxygen Flow Rate Sepsis Recent Fever Within 48 Hours Sepsis New/Unexplained Change in Mental Status Sepsis Action Taken by Nursing Laboratory Data 05/26/24 16:27 05/26/24 16:27 Lab Results 05/26/24 05/26/24 05/26/24 Range/Units 16:27 18:43 21:00 WBC 10.11 (4.8-10.8) K/ul RBC 3.55 L (4.70-6.10) M/uL Hgb 9.0 L (14.0-18.0) g/dl Hct 29.1 L (42.0-52.0) % MCV 82.0 (80.0-100.0) fL MCH 25.4 (25.0-34.0) pg MCHC 30.9 L (32.0-36.0) g/dL RDW Std Deviation 49.7 H (36.4-46.3) fL RDW Coeff of Yamil 16.6 H (11.5-14.5) % Plt Count 138 (130-400) K/uL MPV 10.0 (9.4-12.4) fL Immature Gran % (Auto) 0.3 % Neut % (Auto) 62.9 % Lymph % (Auto) 20.0 % [place] % (Auto) 13.3 % Eos % (Auto) 2.9 % Baso % (Auto) 0.6 % Neut # (Auto) 6.37 (1.40-6.50) K/uL Lymph # (Auto) 2.02 (1.20-3.40) K/uL [place] # (Auto) 1.34 H (0.11-0.59) K/uL Eos # (Auto) 0.29 (0.00-0.50) K/uL Baso # (Auto) 0.06 (0.00-0.20) K/uL Immature Gran # (Auto) 0.03 (0.01-0.20) K/uL PT 11.9 (9.0-12.0) Seconds INR 1.1 (0.9-1.1) APTT 27 (21-31) Seconds PTT Ratio 1.0 Sodium 138 (136-145) mmol/L Potassium 3.8 (3.5-5.1) mmol/L Chloride 104 (98-107) mmol/L Carbon Dioxide 28 (21-32) mmol/L Anion Gap 6 (3-11) BUN 25 H (6-23) mg/dl Creatinine 0.89 (0.6-1.4) mg/dl Est Cr Clr Drug Dosing 54.8 ml/min eGFR 83.98 BUN/Creatinine Ratio 28.1 H (10-20) Glucose 183 H (70-99(Fasting)) mg/dl Calcium 9.3 (8.6-10.3) mg/dl Magnesium 1.9 (1.7-2.4) mg/dl Total Bilirubin 0.3 (0.2-1.0) mg/dl AST 10 L (13-39) U/L ALT 6 L (7-52) U/L Alkaline Phosphatase 85 (34-104) U/L Troponin I High Sens 3.5 3.6 (0-20) pg/ml Total Protein 6.8 (6.0-8.3) gm/dl Albumin 3.7 (3.4-5.0) gm/dl Globulin 3.1 (2.5-4.0) gm/dl Albumin/Globulin Ratio 1.2 (0.9-2) Lipase 13 (11-82) U/L TSH 1.060 (0.300-4.500) uIu/ml Urine Color Yellow Urine Appearance Clear (Clear) Urine pH 7.0 (4.5-7.5) Ur Specific [place] 1.042 H (1.000-1.030) Urine Protein 1+ H (Negative) Urine Glucose (UA) Negative (Negative) Urine Ketones 1+ H (Negative) Urine Blood Negative (Negative) Urine Nitrite Negative (Negative) Urine Bilirubin Negative (Negative) Urine Urobilinogen Negative (Negative) Ur Leukocyte Esterase Negative (Negative) Urine WBC (Auto) 0-5 (0-5) /hpf Urine RBC (Auto) 3-5 H (0-2) /hpf U Hyaline Cast (Auto) 0-2 (0-2) /lpf U Epithel Cells (Auto) 0-2 (0-2) /hpf Urine Bacteria (Auto) None Seen (None Seen) Adenovirus (PCR) Not Detected (NotDetected) B. pertussis DNA (PCR) Not Detected (NotDetected) B.parapertussis DNA PCR Not Detected (NotDetected) C. pneumoniae DNA (PCR) Not Detected (NotDetected) Coronavirus OC43 (PCR) Not Detected (NotDetected) Coronavirus HKU1 (PCR) Not Detected (NotDetected) Coronavirus 229E (PCR) Not Detected (NotDetected) SARS-CoV-2 (PCR) Not Detected (NotDetected) Coronavirus NL63 (PCR) Not Detected (NotDetected) Human Metapneumovir PCR Not Detected (NotDetected) Influenza Type A (PCR) Not Detected (NotDetected) Influenza Type B (PCR) Not Detected (NotDetected) M. pneumoniae (PCR) Not Detected (NotDetected) Parainfluenza 1 (PCR) Not Detected (NotDetected) Parainfluenza 2 (PCR) Not Detected (NotDetected) Parainfluenza 3 (PCR) Not Detected (NotDetected) Parainfluenza 4 (PCR) Not Detected (NotDetected) RSV (PCR) Not Detected (NotDetected) Entero/Rhino (PCR) Not Detected (NotDetected) Administered Medications Discontinued Medications Diphenhydramine HCl (Diphenhydramine 50 Mg/Ml Vial) 25 mg IV NOW STA Stop: 05/26/24 18:37 Last Admin: 05/26/24 18:46 Dose: 25 mg Documented By: [facility] Fentanyl Citrate (Fentanyl Citrate Pf 100 Mcg/2 Ml Vial) 50 mcg IV NOW STA Stop: 05/26/24 19:00 Last Admin: 05/26/24 19:07 Dose: 50 mcg Documented By: MED Acetaminophen (Ofirmev) 1,000 mg in 100 mls @ 400 mls/hr IV NOW STA Stop: 05/26/24 21:13 Last Admin: 05/26/24 21:06 Dose: 400 mls/hr Documented By: MED Ioversol (Optiray 320 125ml) 115 ml IV ONCE ONE Stop: 05/26/24 19:36 Last Admin: 05/26/24 19:36 Dose: 115 ml Documented By: [facility] Methylprednisolone (Methylprednisolone 125 Mg/2 Ml Vial) 40 mg IV NOW STA Stop: 05/26/24 18:37 Last Admin: 05/26/24 18:45 Dose: 40 mg Documented By: [facility] Imaging Data Radiologist's Impression: Chest X-Ray 05/26/24 16:13 EXAM: Radiograph of the Chest 1 View INDICATION: Chest and left axillary pain during respiration. TECHNIQUE: Frontal view of the chest. COMPARISON: 11/12/2021 FINDINGS: Lungs and pleural spaces: Minimal parenchymal scarring in the left lower lung. No consolidation or pulmonary edema. No pleural effusion or pneumothorax. Heart: Stable cardiomegaly accentuated by technique. Mediastinum: Normal contour. Bones/joints: There is moderate to severe degenerative change of the shoulder. There are old left rib fractures. Degenerative changes noted in the spine. No acute osseous abnormality. Soft tissues: No abnormality noted. No radiopaque foreign body noted. Vasculature: Stable dilated ectatic aorta with arch calcification. Upper abdomen: No abnormality noted. IMPRESSION: Stable chronic changes. No acute disease. ACT 112: Negative or not required by law. Electronically signed by Kerrie Hyde 05-26-2024 4:56 PM Chest CTA 05/26/24 18:35 Exam(s): CTA CHEST IV Amt: 115 ml opti 320 EXAM: CT Angiography Chest With Intravenous Contrast CLINICAL HISTORY: PE. TECHNIQUE: Axial computed tomographic angiography images of the chest with intravenous contrast. MIPS images were created and reviewed. CTDI is 22. 7 mGy and DLP is 693.3 mGy-cm. Automated exposure control was utilized for the study. A dose lowering technique was utilized adhering to the principles of ALARA. MIP reconstructed images were created and reviewed. COMPARISON: Chest radiograph 05/26/2024 FINDINGS: Pulmonary arteries: Unremarkable. No pulmonary embolism. Aorta: No acute findings. Mild atherosclerosis. No thoracic aortic aneurysm. Lungs: Interseptal thickening is concerning for pulmonary edema. No mass. Pleural space: Trace bilateral pleural effusions. No pneumothorax. Heart: Cardiomegaly. Coronary artery calcifications are present. No significant pericardial effusion. No evidence of RV dysfunction. Bones/joints: There are degenerative changes of the spine. No acute fracture. No dislocation. Soft tissues: Unremarkable. Lymph nodes: Unremarkable. No enlarged lymph nodes. IMPRESSION: 1. No pulmonary embolus. 2. Interseptal thickening is concerning for pulmonary edema. 3. Trace bilateral pleural effusions. 4. Cardiomegaly. Electronically signed by: Latoya Cheung MD 05/26/24 22:33 PM Discharge Plan Visit Data Chief Complaint: Chest Pain Stated Complaint: BREATHING HURTS HIS CHEST ED Provider: Sheba Damian Discharge Problem: Chest pain, Fever, Pulmonary edema, Atrial fibrillation Forms Stand Alone Forms: [facility] Prescriptions Prescriptions: No Action multivitamin Tablet 1 tab PO QAM cetirizine [Zyrtec] 10 mg Tablet 10 mg PO QAM acetaminophen [Tylenol Extra Strength] 500 mg Tablet 1,000 mg PO BID ascorbic acid (vitamin C) [Vitamin C] 500 mg Tablet 500 mg PO QAM prednisone 1 mg tablet 2 mg PO QAM finasteride 5 mg tablet 5 mg PO QPM naphazoline 0.012 % Drops 1 drp OPHTHALMIC (EYE) TID PRN (Reason: Allergy Symptoms) amlodipine 2.5 mg Tablet 2.5 mg PO QAM Patient Comments: with 5mg to equal 7.5mg every am famotidine [Pepcid] 20 mg Tablet 20 mg PO QAM oxycodone-acetaminophen [Percocet] 5-325 mg tablet 2 tab PO Q6H PRN (Reason: pain) Qty: 24 0RF Rx Instructions: Initial Treatment aspirin 81 mg Tablet,Delayed Release (Dr/Ec) 81 mg PO DAILY meloxicam 7.5 mg tablet 7.5 mg PO BID [id number] [Diqghr-Kqbvl-ASL (with antiox)] 500-500-66.7 mg Tablet 2 tab PO BID warfarin 2 mg tablet 2 mg PO DAILY Referrals Referrals: Baldev Molina DO [Primary Care Provider] -
[2024-05-26] MEDS: methylPREDNISolone 125 MG/2 ML VIAL IV STA (18:45)
[2024-05-26] MEDS: diphenhydrAMINE 50 MG/ML VIAL IV STA (18:46)
[2024-05-26] MEDS: fentaNYL citrate PF 100 MCG/2 ML VIAL IV STA (19:07)
[2024-05-26] MEDS: OPTIRAY 320 125ml IV ONE (19:36)
[2024-05-26] MEDS: ACETAMINOPHEN 1,000 MG/100 ML VIAL IV STA (21:06)
[2024-05-26 21:25] LABS: Appearance Urine Clear (Clear); Bacteria Urine Automated None Seen (None Seen); Bilirubin Urine Negative (Negative); Blood Urine Negative (Negative); Cast Urine Automated 0-2 /lpf (0-2); Color Urine Yellow; Epithelial Cell Urine Auto 0-2 /hpf (0-2); Glucose Urine UA Negative (Negative); Ketones Urine 1+ (Negative); Leukocyte Esterase Urine Negative (Negative); Nitrite Urine Negative (Negative); Protein Urine 1+ (Negative); Specific Gravity Urine 1.042 (1.000-1.030); Urobilinogen Urine Negative (Negative); WBC Urine Automated 0-5 /hpf (0-5)
[2024-05-26 22:13] LABS: Adenovirus PCR Not Detected (NotDetected); Bordetella parapertussis PCR Not Detected (NotDetected); Bordetella pertussis PCR Not Detected (NotDetected); Chlamydia pneumoniae PCR Not Detected (NotDetected); Coronavirus 229E PCR Not Detected (NotDetected); Coronavirus CoV-2 (COVID19)PCR Not Detected (NotDetected); Coronavirus HKU1 PCR Not Detected (NotDetected); Coronavirus NL63 PCR Not Detected (NotDetected); Coronavirus OC43PCR Not Detected (NotDetected); Human Metapneumovirus PCR Not Detected (NotDetected); Influenza A PCR Not Detected (NotDetected); Influenza B PCR Not Detected (NotDetected); Mycoplasma pneumoniae PCR Not Detected (NotDetected); Parainfluenza Virus 1 PCR Not Detected (NotDetected); Parainfluenza Virus 2 PCR Not Detected (NotDetected); Parainfluenza Virus 3 PCR Not Detected (NotDetected); Parainfluenza Virus 4 PCR Not Detected (NotDetected); Respiratory Syncytial VirusPCR Not Detected (NotDetected); Rhinovirus/Enterovirus PCR Not Detected (NotDetected)
--- NOTE | 2024-05-26 22:34 | CT Scan Report ---
Exam(s): CTA CHEST IV Amt: 115 ml opti 320 EXAM: CT Angiography Chest With Intravenous Contrast CLINICAL HISTORY: PE. TECHNIQUE: Axial computed tomographic angiography images of the chest with intravenous contrast. MIPS images were created and reviewed. CTDI is 22. 7 mGy and DLP is 693.3 mGy-cm. Automated exposure control was utilized for the study. A dose lowering technique was utilized adhering to the principles of ALARA. MIP reconstructed images were created and reviewed. COMPARISON: Chest radiograph 05/26/2024 FINDINGS: Pulmonary arteries: Unremarkable. No pulmonary embolism. Aorta: No acute findings. Mild atherosclerosis. No thoracic aortic aneurysm. Lungs: Interseptal thickening is concerning for pulmonary edema. No mass. Pleural space: Trace bilateral pleural effusions. No pneumothorax. Heart: Cardiomegaly. Coronary artery calcifications are present. No significant pericardial effusion. No evidence of RV dysfunction. Bones/joints: There are degenerative changes of the spine. No acute fracture. No dislocation. Soft tissues: Unremarkable. Lymph nodes: Unremarkable. No enlarged lymph nodes. IMPRESSION: 1. No pulmonary embolus. 2. Interseptal thickening is concerning for pulmonary edema. 3. Trace bilateral pleural effusions. 4. Cardiomegaly. Electronically signed by: Latoya Cheung MD 05/26/24 22:33 PM
--- NOTE | 2024-05-26 23:19 | History & Physical Report ---
Date of Service May 26, 2024 Assessment & Plan (1) Pleuritic chest pain: Plan: -Patient with chest pain that gets worse with deep breaths. -Elevated temperature 37.9, requiring 2 L nasal cannula, and A-fib. -CBC benign but does show a hemoglobin of 9.0 which is chronic due to his B-cell lymphoproliferative disorder. -CMP unremarkable. -Pro-Ambrose negative, TSH negative, lipase negative. -BNP of 375. Will get echo in the AM. -Respiratory BioFire negative. -Chest x-ray showed stable chronic changes. -Chest CTA showed no pulmonary embolism, interseptal thickening concerning for pulmonary edema. Trace bilateral pleural effusions and cardiomegaly. -Blood cultures pending. -Given patient's symptoms we will start on ceftriaxone and azithromycin. -DuoNebs as needed, incentive spirometry, and flutter valve. (2) Atrial fibrillation: Plan: -Patient with new onset A-fib that was previously seen. Started on metoprolol tartrate 25 mg twice daily and will increase as needed. -Echo in AM. Aortic stenosis heard on physical exam. -Started on Eliquis 5 mg twice daily. -Cardiology consulted. (3) Pulmonary edema: Plan: -Pulmonary edema seen on chest CTA. -Echo in the AM. 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 (5) Hypertension: Plan: -Continue home amlodipine, adding on metoprolol tartrate given A-fib. (6) GERD (gastroesophageal reflux disease): Plan: -Continue home Pepcid. History of Present Illness Chief Complaint: chest pain; fever Primary Care Provider: Baldev Molina DO Patient is a 84-year-old male with past medical history of B-cell lymphoproliferative disorder, aortic stenosis, hypertension, GERD, dyslipidemia who presents to the hospital with chest pain. Patient states that around 2 AM he had pain under his armpit and he cannot get comfortable in bed. He then woke up and the pain resolved and he went to the line where he rode bike for 40 minutes. He then started to have issues around 3 PM or the top of his chest felt sharp when he laid down on his recliner. States that the pain happened every time he was breathing. Denies any fevers though states that he had some chills. Denies any cough or shortness of breath. States that the pain started when laying on his back but denies any shortness of breath. Denies any anticoagulation use. Rates his pain a 6 out of 10. Denies any headaches or abdominal pain. Allergies Allergy/AdvReac Type Severity Reaction Status Date / Time grass pollen-perennial rye, Allergy Mild TREE/GRASS-ITCHY Verified 11/12/21 15:18 standar EYES, STUFFY NOSE iodine Allergy Mild RASH WITH Verified 11/12/21 15:18 TOPICAL mustard Allergy Mild REACTION Verified 11/12/21 15:18 TO PATCH TEST-DOESN'T EAT Penicillins Allergy Unknown UNKNOWN Verified 11/12/21 15:18 adhesive AdvReac Mild REDNESS Verified 11/12/21 15:18 SKIN WITH SOME BANDAIDS Home Medications Medication Instructions Recorded Confirmed Type acetaminophen 500 mg tablet 1,000 mg PO BID 09/15/20 11/12/21 History (Tylenol Extra Strength) ascorbic acid (vitamin C) 500 mg 500 mg PO QAM 09/15/20 11/12/21 History tablet (Vitamin C) cetirizine 10 mg tablet (Zyrtec) 10 mg PO QAM 09/15/20 11/12/21 History finasteride 5 mg tablet 5 mg PO QPM 09/15/20 11/12/21 History multivitamin 1 tab PO QAM 09/15/20 11/12/21 History prednisone 1 mg tablet 2 mg PO QAM 09/15/20 11/12/21 History amlodipine 2.5 mg tablet 2.5 mg PO QAM 09/14/21 11/12/21 History famotidine 20 mg tablet (Pepcid) 20 mg PO QAM 09/14/21 11/12/21 History naphazoline 0.012 % eye drops 1 drp ophthalmic (eye) TID PRN 09/14/21 11/12/21 History Allergy Symptoms oxycodone-acetaminophen 5 mg-325 2 tab PO Q6H PRN pain #24 tabs 10/12/21 11/12/21 Rx mg tablet (Percocet) aspirin 81 mg tablet,delayed 81 mg PO DAILY 11/12/21 11/12/21 History release bcmetihigcy-yif-cnjmrsxlx-hrb 2 tab PO BID 11/12/21 11/12/21 History 149-hyalur 500 mg-500 mg-66.7 mg tablet (Jsdoxjtzwtl-Mhqoqfdzfog-HNN (with antiox)) meloxicam 7.5 mg tablet 7.5 mg PO BID 11/12/21 11/12/21 History warfarin 2 mg tablet 2 mg PO DAILY 11/12/21 11/12/21 History Past Med/Surg History Problem List (Updated 05/27/24 @ 01:46 by Jann Tineo DO) B-cell lymphoproliferative disorder Pleuritic chest pain Atrial fibrillation (Acute) Pulmonary edema (Acute) Fever (Acute) Chest pain (Acute) Degenerative joint disease of right hip Encounter for pre-operative examination Carpal tunnel syndrome (Chronic) Encounter for [place] catheter removal (Acute) Retained orthopedic hardware Urinary tract infection (Acute) Hypertension (Chronic) Hyperlipidemia (Chronic) BPH (benign prostatic hypertrophy) with urinary retention (Acute) DJD (degenerative joint disease) of hip Medical History Anemia BPH (benign prostatic hypertrophy) with urinary retention Cardiomegaly "Mild" per 09/25/21 CXR Chronic steroid use Pt states for his arthritis - he is unsure if hx rheumatoid arthritis (no cervical extension/flexion limitations per PAT visit 09/25/21) DJD (degenerative joint disease) of hip GERD (gastroesophageal reflux disease) Hearing deficit History of kidney stones Hyperlipidemia Hypertension Monoclonal gammopathy Osteoarthritis Pulmonary sarcoidosis Scoliosis Surgical History History of appendectomy History of bilateral cataract extraction History of carpal tunnel surgery of left wrist History of colonoscopy History of cystoscopy History of detached retina repair x2--1 on each eye History of ear surgery bilateral--at the age of 2 "to open them up" History of esophagogastroduodenoscopy (EGD) History of lithotripsy History of repair of rotator cuff History of revision of total replacement of right knee joint Revision right TKA with polyexchange of tibia + patella (10/30/17): SAB at L3- 4 (x1 attempt) + PNB at [facility]. No issues per post-op anesthesia progress note. History of tonsillectomy and adenoidectomy History of tooth extraction partial lower denture History of total left hip arthroplasty History of total left knee replacement (TKR) History of total right knee replacement (TKR) History of wisdom tooth extraction Status post trigger finger release right middle finger Family History Mother Colon cancer Brother Colon cancer Other Family history non-contributory No family history of adverse response to anesthesia Social History Smoking Status: Never smoker Second Hand Exposure: No; Do You Dip or Chew Tobacco: No; Hx Alcohol Use: Yes ("one glass of wine and a vodka tonic every evening") Alcohol type: wine and hard liquor Hx Substance Use: No Preferred Language: Cape Verdean Communication Ability: Effective Executive Talent Acquisition Consultant Required: No Beliefs That Will Affect Care: None marital status: Current Living Situation: Spouse current occupational status: retired Feels Safe at Home: Yes Assistive Devices: Walker Review of Systems Review of Systems: All systems reviewed & are unremarkable except as noted in Subjective Physical Exam Physical Exam: Constitutional: well-appearing, no acute distress HEENT: NCAT, no conjunctival injection CV: Irregularly irregular rate and rhythm, aortic stenosis, extremities well- perfused, no LE edema Resp: CTABL, no wheezes/rales/rhonchi appreciated, no increased work of breathing GI: soft, nondistended, nontender, BS normoactive MSK: no gross deformities appreciated Skin: warm, dry, no rash appreciated Neuro: alert, oriented, no focal neurologic deficit appreciated Results & Data Results & Data Vital Signs (Past 12 Hours) Vital Signs Temp Pulse Pulse Resp BP BP Pulse Ox 05/26/24 22:58 37.9 C H 05/26/24 22:40 110 H 22 134/95 95 05/26/24 22:37 106 H 05/26/24 20:57 37.7 C H 95 H 20 95 05/26/24 19:30 80 23 145/86 H 94 05/26/24 18:50 90 05/26/24 18:50 86 20 95 05/26/24 18:42 76 20 117/87 96 05/26/24 18:42 96 05/26/24 16:12 36.7 C 91 H 18 149/87 H 96 O2 Del Method O2 Flow Rate 05/26/24 22:58 05/26/24 22:40 Room Air 05/26/24 22:37 05/26/24 20:57 Nasal Cannula 2 05/26/24 19:30 Nasal Cannula 2 05/26/24 18:50 05/26/24 18:50 Room Air 05/26/24 18:42 Room Air 05/26/24 18:42 Room Air 05/26/24 16:12 Room Air Resident Activity Tracking Resident Involvement: Resident Care Provided Care Provided: Adult Hospital Medicine
[2024-05-27 00:19] LABS: Lyme Screen Rflx Confirmation Negative (Negative)
[2024-05-27 00:36] LABS: Procalcitonin 0.06 ng/ml (0-0.5)
[2024-05-27] MEDS ORDERED: ACETAMINOPHEN 325 MG TAB PO PRN (01:00)
[2024-05-27] MEDS ORDERED: ONDANSETRON INJ 2 MG/ML 2 ML VIAL IV PRN (01:00)
[2024-05-27] MEDS ORDERED: ALBUT/IPRATROP 3MG/0.5MG NEB 3 ML VIAL NEB PRN (01:00)
[2024-05-27] MEDS: METOPROLOL TARTRATE 25 MG TAB PO SCH (01:09)
[2024-05-27 01:33] LABS: Hematocrit (blood only) 29.3 % (42.0-52.0); Mean Corpuscular Hemoglobin 24.8 pg (25.0-34.0); Mean Corpuscular Hgb Conc 30.7 g/dL (32.0-36.0); Mean Corpuscular Volume 80.7 fL (80.0-100.0); Platelet Count 135 K/uL (130-400); RDW Coefficient of Variation 16.7 % (11.5-14.5); RDW Standard Deviation 49.1 fL (36.4-46.3); Red Blood Count 3.63 M/uL (4.70-6.10); White Blood Count 10.34 K/ul (4.8-10.8)
[2024-05-27 01:50] LABS: Albumin Globulin Ratio 1.3 (0.9-2); Albumin Level 3.8 gm/dl (3.4-5.0); BUN Creatinine Ratio 28.8 (10-20); Basophils # (auto) 0.01 K/uL (0.00-0.20); Basophils % (auto) 0.1 %; Bilirubin,Total 0.5 mg/dl (0.2-1.0); Calcium 9.3 mg/dl (8.6-10.3); Creatinine Clr Calc Pharmacy 66.8 ml/min; Immature Granulocytes # (auto) 0.05 K/uL (0.01-0.20); Immature Granulocytes % (auto) 0.5 %; Lymphocytes # (auto) 0.56 K/uL (1.20-3.40); Lymphocytes % (auto) 5.4 %; Magnesium 1.9 mg/dl (1.7-2.4); Monocytes # (auto) 0.21 K/uL (0.11-0.59); Neutrophils # (auto) 9.51 K/uL (1.40-6.50); Polychromasia 1+; Total Protein 6.8 gm/dl (6.0-8.3)
[2024-05-27] MEDS: cefTRIAXone SODIUM 2,000 MG in DEXTROSE 5% 50 ML IV SCH (03:07)
[2024-05-27] MEDS: AZITHROMYCIN 500 MG in SODIUM CHLORIDE 0.9% 250 ML IV SCH (03:38)
[2024-05-27 07:47] VITALS: RESP 18
--- OUTSIDE RECORDS SUMMARY | 2024-05-27 08:34 | External Medical Summary | Continuity of Care Document ---
Author Name Unknown Organization [facility] [address] [facility] [address] [id number] Care Team Providers Care Invoice Coder Name Role Phone Baldev Molina Primary Care Physician [phone] [facility] [id number] Date(s): 04/06/24 - 04/06/24 [facility] [address] [facility] [address] [phone] [place] Discharge Disposition: Home or Self Care Attending Physician: MD Robledo Cassandra Referring Physician: DIO Ochoa, Mirta Rubio Allergies, Adverse Reactions, Alerts Substance Criticality Severity Reaction Reaction Severity Status iodine 1 dermatitis Active Allergy Not found in Search 2, 3 upper resp symptoms Active 1topical iodine 2grasses, trees 3Seasonal Immunizations Given and Recorded Vaccine Date Status Refusal Reason SARS-CoV-2 (COVID-19) mRNA BNT-162b2 vax 1 09/17/20 Recorded SARS-CoV-2 (COVID-19) mRNA BNT-162b2 vax 2 08/27/20 Recorded pneumococcal 13-valent vaccine 06/28/08 Recorded 1Result Comment: 2021-03-01: Historical information-source unspecified 2Result Comment: 2021-03-01: Historical information-source unspecified Medications amLODIPine 2.5 mg oral tablet Start: 02/26/24 11:03:00 AM EDT, 1 tab, PO, Daily, Disp# 90 tab, Refills: 3, Pharmacy: [id number] Start Date: 02/26/24 Status: Ordered amLODIPine 5 mg oral tablet Start: 02/26/24 11:03:00 AM EDT, 1 tab, PO, Daily, Disp# 90 tab, Refills: 3, Pharmacy: [id number] Start Date: 02/26/24 Status: Ordered diclofenac 1% topical gel Start: 12/04/18 5:03:08 PM EDT, See Instructions, Disp# 100, Refills: 1, Apply topically to the affected area four times daily as needed for pain, Pharmacy: [id number], Apply topically to the affected area four times daily as needed for pain Start Date: 12/04/18 Status: Ordered finasteride 5 mg oral tablet Start: 02/26/24 11:03:00 AM EDT, 1 tab, PO, Daily, Disp# 90 tab, Refills: 3, Pharmacy: [id number] Start Date: 02/26/24 Status: Ordered Glucosamine & Chondroitin with MSM Start: 06/27/10 1:35:57 PM EST, 1 tab/1500 mg, PO, bid, Refills: 0, current medication from another provider Start Date: 06/27/10 Status: Ordered meloxicam 7.5 mg oral tablet Start: 02/25/24 2:09:00 PM EDT, 1 tab, PO, bid, Disp# 180 tab, Refills: 3, Pharmacy: [id number] Start Date: 02/25/24 Status: Ordered Ocuvite Start: 12/14/16 2:34:00 PM EDT, 1 tab, PO Start Date: 12/14/16 Status: Ordered Pepcid Start: 09/25/21 9:11:00 AM EDT Start Date: 09/25/21 Status: Ordered predniSONE 1 mg oral tablet Start: 09/02/23 12:55:00 PM EDT, 2 tab, PO, Daily, Disp# 180 tab, Refills: 3, Pharmacy: [id number] Start Date: 09/02/23 Status: Ordered Refresh Dry Eye Therapy Start: 09/25/21 9:12:00 AM EDT Start Date: 09/25/21 Status: Ordered triamcinolone 0.1% topical lotion Start: 03/06/24 2:58:00 PM EDT, 1 appl, topical, bid, Disp# 60 mL, Refills: 3, apply to scalp, Pharmacy: [id number] Start Date: 03/06/24 Status: Ordered Tylenol 500 mg oral tablet Start: 01/16/13 9:50:00 AM EDT, 2 tab, PO, bid Start Date: 01/16/13 Status: Ordered Viagra 100 mg oral tablet Start: 07/30/22 11:53:00 AM EST, 1 tab, PO, Daily, Disp# 6 tab, Refills: 1, PRN: as needed for erectile dysfunction, Pharmacy: [id number] Start Date: 07/30/22 Status: Ordered Vitamin C Start: 06/27/10 1:35:42 PM EST, 500 mg =, PO, Daily, Refills: 0, current medication from another provider Start Date: 06/27/10 Status: Ordered Mental Status 04/06/24 Barriers to Learning one year None evide nt Mandatory Health Literacy Documentation Yes Health Literacy Communication Barriers N ever Primary Language Australian Problem List Condition Confirmation Course Effective Dates Status H ealth Status Informant AK (actinic keratosis) Confirmed Active Acute UTI Confirmed Active Left ankle pain Confirmed Active Arthritis Confirmed Active Basal cell carcinoma Confirmed Active Benign essential HTN Confirmed Active BPH Confirmed Active Changing skin lesion Confirmed Active Pes planovalgus Confirmed Active CTR - Carpal tunnel release 1 Confirmed Active Detached retina Confirmed Active Dyslipidemia Confirmed Active Quadriceps tendinitis Confirmed Active Family history of basal cell carcinoma (BCC) Confirmed Active Fever Confirmed Active Left foot pain Confirmed Active Rib fracture Confirmed Active S/P revision of total knee Confirmed Active Hip joint replacement status Confirmed Active Hx of sarcoidosis Confirmed Active Encounter for exam following cancer surgery Confirmed Active High cholesterol Confirmed Active Left hip pain Confirmed Active History of knee replacement Confirmed Active Status post total hip replacement, left Confirmed Active S/P total knee arthroplasty Confirmed Active Hypertension Confirmed Active Right low back pain Confirmed Active Foot fracture, right Confirmed Active Monoclonal gammopathy Confirmed Active Actinic keratoses Confirmed Active Olecranon bursitis of left elbow Confirmed Active Osteoarthritis Confirmed Active Degenerative joint disease of left hip Confirmed Active Degenerative arthritis of left ankle Confirmed Active 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 Confirmed Active Left elbow pain Confirmed Active Left knee pain Confirmed Active Pulmonary sarcoidosis Confirmed Active Rotator cuff impingement syndrome of left shoulder Confirmed Active Seborrheic dermatitis of scalp Confirmed Active Shoulder pain 2 Confirmed Active Trigger finger 3 Confirmed Active Weight disorder Confirmed Active 1left 2right 3left long finger Procedures Procedure Date Related Diagnosis Body Site Status Mohs micrographic surgery 08/07/23 Completed Mohs' micrographic surgery 08/07/23 Completed Punch biopsy 05/21/23 Completed Shave biopsy and cauterization of skin 05/21/23 Completed Shave biopsy and cauterizati on of skin 1 11/19/22 Completed Chest x-ray 2 12/12/21 Completed Total hip replacement 3 10/11/21 C ompleted Echocardiogram 4 11/23/19 Complete d KUB X-ray 5 12/16/17 Completed X-ray of right knee 6 10/30/17 Com pleted Chest X-ray 7 10/11/17 Completed X-ray of cervical spine 8 10/11/17 Completed KUB X-ray 9 12/05/16 Completed Imagingintraoperative 09/01/15 Com pleted Imaging 10 07/14/15 Completed Procedure 09/2014 Completed left carpal tunnel surgery 04/08/12 Completed Appendectomy 1950 Completed bone marrow biopsy 11 Com pleted CAT scan 12 Completed Cataract surgery 13 Compl eted colonoscopy 14 Completed Detached retina 15 Comple giacomo Hip replacement Completed knee surgery Completed Lithotripsy of kidney Com pleted Lithotripsy of kidney Com pleted massive rotator cuff repair 16 Completed T & A Completed trigger finger releases C ompleted [place] teeth removal Comp leted 1ED&C 2Hyperinflation without acute process 3Right 4scanned into chart 5Impression: No radiographic evidence of renal or ureteral calculi 6right total knee arthroplasty degenerative arthritis 7Mild stable cardiomegaly. 81. No evidence for cervical spine instability. 2. Marked disc space narrowing with moderate osteophytosis at C4-C5. 9normal study 10KUB [id number] 12CT of the abdomen and pelvis without contrast, stone protocol 13B/L 14last 5 years ago [id number] bilateral [id number] Social History Social History Type Response Smoking Status Never smoked cigaret rickey Sex Male Sex Representation Male (finding) Patient Care team information Care Team Personnel Name: DO Molina Franklin J Position: Physician - Family Med Member Role: Primary Care Provider Address: [address] [address] Care Team Related Persons Name: LIZ JIMENEZ
--- OUTSIDE RECORDS SUMMARY | 2024-05-27 08:34 | External Medical Summary | Continuity of Care Document ---
Author Name Unknown Organization [facility] [address] [id number] Care Team Providers Care Securities Settlement Processor Name Role Phone Baldev Molina Primary Care Physician [phone] Encounter [facility] [phone] Date(s): 03/06/24 - 03/06/24 [facility] [address] [phone] [place] Encounter Diagnosis Encounter for exam following cancer surgery(Discharge Diagnosis) - 03/06/24 Actinic keratoses(Discharge Diagnosis) - 03/06/24 Changing skin lesion(Discharge Diagnosis) - 03/06/24 Seborrheic dermatitis of scalp(Discharge Diagnosis) - 03/06/24 Discharge Disposition: Home or Self Care Attending Physician: DIO Haddad Holly C Allergies, Adverse Reactions, Alerts Substance Criticality Severity Reaction Reaction Severity Status Allergy Not found in Search 1, 2 upper resp symptoms Active iodine 3 dermatitis Active 1grasses, trees 2Seasonal 3topical iodine Assessment and Plan Extracted from: Title:Dermatology Office Visit Note Author:DIO Haddad Holly C Date:03/06/24 1.Actinic keratoses New Flared Goal is no symptomatic actinic keratoses or actinic keratoses evolving to skin cancer. Education - risk for evolution to skin cancer is very low. Warning signs of skin cancer were reviewed. Protection from sun exposure with hats, sunscreens Discussed treatment options:observation/cryotherapy/topical chemotherapy Patient elected to pursue liquid nitrogen Lesions treated with liquid nitrogen. Patient aware of possibility scabs, blisters, and should fall off in about 1-2 weeks, Discussed possible risk of infection, hypo or hyperpigmentation or scarring. Patient elected to proceed.They should inform me of any problems or recurrences post treatment. treated total of 1lesionon right ear, 1 on left ear, 2 on scalp, 1 on right baptist, 1 on left cheek, 3 on left baptist. used Efudex on her nose with severe reaction. 2.Encounter for exam following cancer surgery 05/21/2023 basal cell left lateral neck treated with MOH's 08/07/[address] Robledo, left ear conchabiopsy showed scar and perifolliculitis. 11/19/2022asal cell left lateral neck. No evidence of recurrence. 3.Changing skin lesion Acute Flared left ear orlando bowl with tender nodule 3 mm skin toned-will refer to Dr Robledo for evaluation and possible biopsy. photos in chart. Diagnosis 1. Skin, left lateral neck, Shave Biopsy: - Basal cell carcinoma, nodular type. 2. Skin, left ear [place], Shave Biopsy: -Scar and perifolliculitis Aubrey Emanuel MD (Electronically signed by) Verified: 05/27/2023 15:42 EST Performing Location: [facility] 4.Seborrheic dermatitis of scalp Chronic No change. Continue, prescription senttriamcinolonelotions0.1%to apply to asneeded for itch. he may not need this, due to the tendernessmay have been from the actinic keratosis I treated today. Patient was advised of the side effects of topical steroids such as skin atrophy, stretch pearson. hyper/hypo-pigmentation. patient and state understanding. Advised patient to call with any problems, questions, or concerns. States understanding. Patient was seen independently,Dr Hillavailable for immediate collaboration as needed during this visit. Will follow up in 1 yearfor skin exam Immunizations Given and Recorded Vaccine Date Status Refusal Reason SARS-CoV-2 (COVID-19) mRNA BNT-162b2 vax 1 09/17/20 Recorded SARS-CoV-2 (COVID-19) mRNA BNT-162b2 vax 2 08/27/20 Recorded pneumococcal 13-valent vaccine 06/28/08 Recorded 1Result Comment: 2021-03-01: Historical information-source unspecified 2Result Comment: 2021-03-01: Historical information-source unspecified Medications amLODIPine 2.5 mg oral tablet Start: 02/26/24 11:03:00 AM EDT, 1 tab, PO, Daily, Disp# 90 tab, Refills: 3, Pharmacy: [id number] Start Date: 02/26/24 Status: Ordered amLODIPine 5 mg oral tablet Start: 02/26/24 11:03:00 AM EDT, 1 tab, PO, Daily, Disp# 90 tab, Refills: 3, Pharmacy: [id number] Start Date: 02/26/24 Status: Ordered diclofenac 1% topical gel Start: 12/04/18 5:03:08 PM EDT, See Instructions, Disp# 100, Refills: 1, Apply topically to the affected area four times daily as needed for pain, Pharmacy: [id number], Apply topically to the affected area four times daily as needed for pain Start Date: 12/04/18 Status: Ordered finasteride 5 mg oral tablet Start: 02/26/24 11:03:00 AM EDT, 1 tab, PO, Daily, Disp# 90 tab, Refills: 3, Pharmacy: [id number] Start Date: 02/26/24 Status: Ordered Glucosamine & Chondroitin with MSM Start: 06/27/10 1:35:57 PM EST, 1 tab/1500 mg, PO, bid, Refills: 0, current medication from another provider Start Date: 06/27/10 Status: Ordered meloxicam 7.5 mg oral tablet Start: 02/25/24 2:09:00 PM EDT, 1 tab, PO, bid, Disp# 180 tab, Refills: 3, Pharmacy: [id number] Start Date: 02/25/24 Status: Ordered Ocuvite Start: 12/14/16 2:34:00 PM EDT, 1 tab, PO Start Date: 12/14/16 Status: Ordered Pepcid Start: 09/25/21 9:11:00 AM EDT Start Date: 09/25/21 Status: Ordered predniSONE 1 mg oral tablet Start: 09/02/23 12:55:00 PM EDT, 2 tab, PO, Daily, Disp# 180 tab, Refills: 3, Pharmacy: [id number] Start Date: 09/02/23 Status: Ordered Refresh Dry Eye Therapy Start: 09/25/21 9:12:00 AM EDT Start Date: 09/25/21 Status: Ordered triamcinolone 0.1% topical lotion Start: 03/06/24 2:58:00 PM EDT, 1 appl, topical, bid, Disp# 60 mL, Refills: 3, apply to scalp, Pharmacy: [id number] Start Date: 03/06/24 Status: Ordered Tylenol 500 mg oral tablet Start: 01/16/13 9:50:00 AM EDT, 2 tab, PO, bid Start Date: 01/16/13 Status: Ordered Viagra 100 mg oral tablet Start: 07/30/22 11:53:00 AM EST, 1 tab, PO, Daily, Disp# 6 tab, Refills: 1, PRN: as needed for erectile dysfunction, Pharmacy: [id number] Start Date: 07/30/22 Status: Ordered Vitamin C Start: 06/27/10 1:35:42 PM EST, 500 mg =, PO, Daily, Refills: 0, current medication from another provider Start Date: 06/27/10 Status: Ordered Mental Status 03/06/24 Barriers to Learning one year None evide nt Mandatory Health Literacy Documentation Yes Health Literacy Communication Barriers N ever Primary Language Liberian Problem List Condition Confirmation Course Effective Dates [...] Confirmed Active 1left 2right 3left long finger Diagnosis Diagnosis Type Effective Dates Health Status Clinical Service Informant Encounter for exam following cancer surgery Discharge Diagnosis 03/06/24 Non-Specified Actinic keratoses Discharge Diagnosis 03/06/24 Non-Specified Seborrheic dermatitis of scalp Discharge Diagnosis 03/06/24 Non-Specified Changing skin lesion Discharge Diagnosis 03/06/24 Non-Specified Procedures Procedure Date Related Diagnosis Body Site [...] A Completed trigger finger releases C ompleted Allgood teeth removal Comp leted 1ED&C 2Hyperinflation without acute process 3Right 4scanned into chart 5Impression: No radiographic evidence of renal or ureteral calculi 6right total knee arthroplasty degenerative arthritis 7Mild stable cardiomegaly. 81. No evidence for cervical spine instability. 2. Marked disc space narrowing with moderate osteophytosis at C4-C5. 9normal study 10KUB [id number] 12CT of the abdomen and pelvis without contrast, stone protocol 13B/L 14last 5 years ago [id number] bilateral [id number] Social History Social History Type Response Smoking Status Never smoked cigaret rickey Sex Male Sex Representation Male (finding) Dermatology Outpatient Note * DIO Haddad, Nadia Mata: PERFORM Event Display: Dermatology Outpt Note Authored Date: [id number] Chief Complaint skin review - area where surgery was behind left ear is rough and something in left ear that hurts.Scabs to back of head have gotten worse History of Present Illness 84 YearsoldMalepatient here for skin check. new to me. Patient reports area of concern today: tender spot, scab on crown and in left ear. he has been using triamcinolone on his scalp without relief, prescribed by Dr Guerra. 05/21/2023 basal cell left lateral neck treated with MOH's 08/07/[address] Robledo, left ear conchabiopsy showed scar and perifolliculitis. 11/19/2022asal cell left lateral neck. No evidence of recurrence. pathology reviewed. note reviewed. No other skin areas of concern. Otherwise healthy. Saw Dr Galiciap107/22/2022 note reviewed. Physical Exam General: Well developed, well nourished,WhiteMalein no acute distress. Oriented x3 with appropriate mood and affect. Skin: complete skin exam performed of hair, scalp, ears, face, nose, lips, neck, chest, abdomen, buttocks, back, axilla, upper and lower extremities, hands, feet, nails, and digits. The groin and genitals were notincluded: erythematous based, rough, scaling,lesions consistent with actinic keratoses onscalp, face and ears. left ear orlando bowl with tender nodule 3 mm skin toned-will refer to Dr Robledo. minimal redness of scalp with flakes consistent with seborrheic dermatitis. Nolesions suspicious for skin cancer. No unusual features on dermoscopy. Denied any other areas of concerns.Patient declined further exam. Images 2024-03-06 15:03:08 2024-03-06 15:03:21 Assessment/Plan 1.Actinic keratoses New Flared Goal is no symptomatic actinic keratoses or actinic keratoses evolving to skin cancer. Education - risk for evolution to skin cancer is very low. Warning signs of skin cancer were reviewed. Protection from sun exposure with hats, sunscreens Discussed treatment options:observation/cryotherapy/topical chemotherapy Patient elected to pursueliquid nitrogen Lesions treated with liquid nitrogen. Patient aware of possibility scabs, blisters, and should falloff in about 1-2 weeks, Discussed possible risk of infection, hypo or hyperpigmentation or scarring. Patient elected to proceed.They should inform me of any problems or recurrences post treatment. treated total [id number] right ear, 1 on left ear, 2 on scalp, 1 on right baptist, 1 on left cheek, 3 on left baptist. used Efudex on her nose with severe reaction. 2.Encounter for exam following cancer surgery 05/21/2023 basal cell left lateral neck treated with MOH's 08/07/[address] Robledo, left ear conchabiopsy showed scar and perifolliculitis. 11/19/2022asal cell left lateral neck. No evidence of recurrence. 3.Changing skin lesion Acute Flared left ear orlando bowl with tender nodule 3 mm skin toned-will refer to Dr Robledo for evaluationand possible biopsy. photos in chart. Diagnosis 1. Skin, left lateral neck, Shave Biopsy: - Basal cell carcinoma, nodular type. 2. Skin, left ear [place], Shave Biopsy: -Scar and perifolliculitis Aubrey Emanuel MD (Electronically signed by) Verified: 05/27/2023 15:42 EST Performing Location: [facility] 4.Seborrheic dermatitis of scalp Chronic No change. Continue, prescription senttriamcinolonelotions0.1%to apply to asneeded for itch. he may not need this, due to the tendernessmay have been from the actinic keratosis I treated today. Patient was advised of the side effects of topical steroids such as skin atrophy, stretch pearson. hyper/hypo-pigmentation. patient and state understanding. Advised patient to call with any problems, questions, or concerns. States understanding. Patient was seenindependently,Dr Hillavailable for immediate collaboration as needed during this visit. 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 Dyslipidemia Encounter for exam following cancer surgery Family history of basal cell carcinoma (BCC) Fever Foot fracture, right High cholesterol Hip joint replacement status History of knee replacement Hx of sarcoidosis Hypertension Left ankle pain Left elbow pain Left foot pain Left hip pain Left knee pain Monoclonal gammopathy Olecranon bursitis of left elbow Osteoarthritis 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 Pes planovalgus Pulmonary sarcoidosis Quadriceps tendinitis Rib fracture Right low back pain Rotator cuff impingement syndrome of 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/P total knee arthroplasty Seborrheic dermatitis of scalp Shoulder pain Status post total hip replacement, left Trigger finger Weight disorder Procedure/Surgical History Mohs' micrographic surgery| Service Date: 08/07/2023Mohs micrographic surgery| Service Date: 08/07/2023Shave biopsy and cauterization of skin| Service Date: 3Punch biopsy| Service Date: 05/21/2023Shave biopsy and cauterization of skin| Service Date: 3Chest x-ray|Service Date: 12/12/2021Total hip replacement| Service Date: 10/11/2021Echocardiogram| Service Date: 11/23/2019KUB X-ray| Service Date: 12/16/2017X-ray of right knee| Service Date: 10/30/2017X-ray of cervical spine| Service Date: 10/11/2017Chest X-ray| Service Date: 10/11/2017KUB X-ray| Service Date: 12/05/2016Imagingintraoperative| Service Date: 09/01/2015Imaging| Service Date: 07/14/2015Procedure| Service Date: 09/2014left carpal tunnel surgery| Service Date: 04/08/2012 Appendectomy| Service Date: 1950 Cataract surgery knee surgery T & A Wisdomteeth removalcolonoscopybone marrow biopsymassive rotator cuff repairtrigger finger releasesDetached retinaLithotripsy of kidneyCAT scanLithotripsy of kidneyHip replacement Medications acetaminophen(Tylenol 500 mg oral tablet), 1000 mg= 2 tab, PO, bid amLODIPine(amLODIPine 2.5 mg oral tablet), 1 tab, PO, Daily amLODIPine(amLODIPine 5 mg oral tablet), 1 tab, PO, Daily ascorbic acid(Vitamin C), 500 mg, PO, Daily chondroitin/glucosamine/methylsulfonylmethane(Glucosamine & Chondroitin with MSM), 1 tab/1500 mg, PO, bid diclofenac topical(diclofenac 1% topical gel), See Instructions, 1 refills famotidine(Pepcid) finasteride(finasteride 5 mg oral tablet), 1 tab, PO, Daily meloxicam(meloxicam 7.5 mg oral tablet), 1 tab, PO, bid multivitamin with minerals(Ocuvite), 1 tab, PO ocular lubricant(Refresh Dry Eye Therapy) predniSONE(predniSONE 1 mg oral tablet), 2 tab, PO, Daily sildenafil(Viagra 100 mg oral tablet), 100 mg= 1 tab, PO, Daily, PRN, 1 refills triamcinolone topical(triamcinolone 0.1% topical lotion), 1 appl, topical, bid, 3 refills Allergies Allergy Not found in Searchupper resp symptoms iodinedermatitis Social History Smoking Status Never smoked cigarettes Employment/School - Not employed or in school Status:Retired Exercise - Regular exercise Times per week:5-6 times/week Exercise type:Walking, Aerobics Substance Abuse - Denies Substance Abuse Tobacco - Denies Tobacco Use Family History Colon cancer..: Mother and Brother. Health Status Family Member(s) Family Member(s) Relationship: Mother, Name: Mom, Age: Unknown Relationship: Father, Name: Dad, Age: Unknown Electronic Signature on File Electronically Reviewed/Signed by: Nadia Haddad PA-C Author Signature Dt/Tm:03/06/2024 03:33 PM Department of Dermatology Electronically Reviewed/Signed by: Lamont Hill MD Cosigner Signature Dt/Tm: 03/07/2024 01:46 PM Department of Dermatology HCB Patient Care team information Care Team Personnel Name: DO Molina Franklin J Position: Physician - Family Med Member Role: Primary Care Provider [address]: [address] [place] [address] [place] Care Team Related Persons Name: LIZ JIMENEZ"
--- OUTSIDE RECORDS SUMMARY | 2024-05-27 08:34 | External Medical Summary | Continuity of Care Document ---
Author Name Unknown Organization [facility] [id number] [address] Address [address], [place] [id number] Care Team Providers Care Engineering Geologist Name Role Phone Baldev Molina Primary Care Physician [phone] [id number] Date(s): 12/05/23 - 12/05/23 [facility] [address], [address] [place] [address] [phone] Discharge Disposition: Home or Self Care Attending Physician: DO Molina Franklin J Referring Physician: DO Molina Franklin J Allergies, Adverse Reactions, Alerts Substance Criticality Severity Reaction Reaction Severity Status Allergy Not found in Search 1, 2 upper resp symptoms Active iodine 3 dermatitis Active 1grasses, trees 2Seasonal 3topical iodine Immunizations Given and Recorded Vaccine Date Status Refusal Reason SARS-CoV-2 (COVID-19) mRNA BNT-162b2 vax 1 09/17/20 Recorded SARS-CoV-2 (COVID-19) mRNA BNT-162b2 vax 2 08/27/20 Recorded pneumococcal 13-valent vaccine 06/28/08 Recorded 1Result Comment: 2021-03-01: Historical information-source unspecified 2Result Comment: 2021-03-01: Historical information-source unspecified Medications amLODIPine 2.5 mg oral tablet Start: 03/11/23 5:58:00 PM EDT, See Instructions, Disp# 90 tab, Refills: 3, TAKE ONE TABLET BY MOUTHDAILY, Pharmacy: [id number] Start Date: 03/11/23 Status: Ordered amLODIPine 5 mg oral tablet Start: 03/11/23 5:59:00 PM EDT, 1 tab, PO, Daily, Disp# 90 tab, Refills: 3, Pharmacy: [id number] Start Date: 03/11/23 Stop Date: 03/05/24 Status: Ordered diclofenac 1% topical gel Start: 12/04/18 5:03:08 PM EDT, See Instructions, Disp# 100, Refills: 1, Apply topically to the affected area four times daily as needed for pain, Pharmacy: [id number], Apply topically to the affected area four times daily as needed for pain Start Date: 12/04/18 Status: Ordered finasteride 5 mg oral tablet Start: 03/11/23 5:58:00 PM EDT, See Instructions, Disp# 90 tab, Refills: 3, TAKE ONE TABLET BY MOUTHDAILY, Pharmacy: [id number] Start Date: 03/11/23 Status: Ordered Glucosamine & Chondroitin with MSM Start: 06/27/10 1:35:57 PM EST, 1 tab/1500 mg, PO, bid, Refills: 0, current medication from another provider Start Date: 06/27/10 Status: Ordered meloxicam 7.5 mg oral tablet Start: 03/11/23 5:58:00 PM EDT, 1 tab, PO, bid, Disp# 180 tab, Refills: 3, Pharmacy: [id number] Start Date: 03/11/23 Stop Date: 03/05/24 Status: Ordered Ocuvite Start: 12/14/16 2:34:00 PM EDT, 1 tab, PO Start Date: 12/14/16 Status: Ordered Pepcid Start: 09/25/21 9:11:00 AM EDT Start Date: 09/25/21 Status: Ordered predniSONE 1 mg oral tablet Start: 09/02/23 12:55:00 PM EDT, 2 tab, PO, Daily, Disp# 180 tab, Refills: 3, Pharmacy: [id number] Start Date: 09/02/23 Status: Ordered Refresh Dry Eye Therapy Start: 09/25/21 9:12:00 AM EDT Start Date: 09/25/21 Status: Ordered triamcinolone 0.1% topical lotion Start: 05/21/23 1:31:00 PM EST, 1 appl, topical, bid, Disp# 60 mL, Refills: 3, apply to scalp, Pharmacy: [id number] Start Date: 05/21/23 Status: Ordered Tylenol 500 mg oral tablet Start: 01/16/13 9:50:00 AM EDT, 2 tab, PO, bid Start Date: 01/16/13 Status: Ordered Viagra 100 mg oral tablet Start: 07/30/22 11:53:00 AM EST, 1 tab, PO, Daily, Disp# 6 tab, Refills: 1, PRN: as needed for erectile dysfunction, Pharmacy: [id number] Start Date: 07/30/22 Status: Ordered Vitamin C Start: 06/27/10 1:35:42 PM EST, 500 mg =, PO, Daily, Refills: 0, current medication from another provider Start Date: 06/27/10 Status: Ordered Problem List Condition Confirmation Course Effective Dates Status H ealth Status Informant AK (actinic keratosis) Confirmed Active Acute UTI Confirmed Active Left ankle pain Confirmed Active Arthritis Confirmed Active Basal cell carcinoma Confirmed Active Benign essential HTN Confirmed Active BPH Confirmed Active Pes planovalgus Confirmed Active CTR - Carpal tunnel release 1 Confirmed Active Detached retina Confirmed Active Dyslipidemia Confirmed Active Quadriceps tendinitis Confirmed Active Fever Confirmed Active Left foot pain Confirmed Active Rib fracture Confirmed Active S/P revision of total knee Confirmed Active Hip joint replacement status Confirmed Active Hx of sarcoidosis Confirmed Active High cholesterol Confirmed Active Left hip pain Confirmed Active History of knee replacement Confirmed Active Status post total hip replacement, left Confirmed Active S/P total knee arthroplasty Confirmed Active Hypertension Confirmed Active Right low back pain Confirmed Active Foot fracture, right Confirmed Active Monoclonal gammopathy Confirmed Active Olecranon bursitis of left elbow Confirmed Active Osteoarthritis Confirmed Active Degenerative joint disease of left hip Confirmed Active Degenerative arthritis of left ankle Confirmed Active 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 81. No evidence for cervical spine instability. 2. Marked disc space narrowing with moderate osteophytosis at C4-C5. 9normal study 10KUB 284347 12CT of the abdomen and pelvis without contrast, stone protocol 13B/L 14last 5 years ago [id number] bilateral [id number] Results Radiology Reports * Exam Date Time Procedure Performing Provider Status 12/05/23 4:02 PM Echo TransTHORacic TTE Complete Saturday; Final Notes: (Echo TransTHORacic TTE Complete) Reason For Exam: one year follow up Echo TransTHORacic TTE Complete Report Signatures Finalized by Dr. Jaime Quintanilla MD on 12/06/2023 05:13 PM [place] Act 112: No-No further action needed Summary 1. Normal left ventricular size and systolic function with no regional wall motion abnormalities. 2. Ejection fraction as calculated by Biplane Simpsons method is 55-60%. 3. Mild concentric left ventricular hypertrophy. Asymmetric basal septal hypertrophy of the elderly. 4. Grade I diastolic dysfunction of the left ventricle (impaired relaxation pattern) with elevated left atrial pressure. 5. Mildly dilated right ventricle with normal systolic function. 6. Severely dilated left atrium. 7. Dilated right atrium. 8. Dilated aortic root (4.0 cm) and ascending aorta (3.5 cm). 9. Calcified, tricuspid aortic valve with mild aortic stenosis. 10. Mild mitral valve regurgitation. 11. Mild to moderate tricuspid valve regurgitation. 12. Mildly elevated pulmonary artery pressures, estimated PASP is 41 mmHg. 13. Compared to the previous study performed 11/23/2022, the PASP has decreased from 51 mmHg to 41 mmHg. No change in the degree of aortic stenosis. Patient Info Name: ORTIZ JIMENEZ Age: 83 years : 1940 Gender: Male Ht: 168 cm Wt: 73 kg BSA: 1.85 m2 HR: 67 bpm BP: 144 / 64 mmHg Heart Rhythm: Sinus Rhythm Technical Quality: Good Exam Date: 12/05/2023 3:15 PM Exam Location: [facility] Patient Status: Outpatient Staff Ordering Physician: Baldev Molina Harness Placer: Gina Blank RDCS T Attending Physician: Baldev Molina Study Info CPT 13150 - Indications I350 - Nonrheumatic aortic (valve) stenosis Procedure(s) * A complete two-dimensional, color flow and Doppler transthoracic echocardiogram was performed. Exam Type: Cardiac Basic Left Ventricle Normal left ventricular size and systolic function with no regional wall motion abnormalities. Ejection fraction as calculated by Biplane Simpsons method is 55-60%. Mild concentric left ventricular hypertrophy. Asymmetric basal septal hypertrophy of the elderly. Grade I diastolic dysfunction of the left ventricle (impaired relaxation pattern) with elevated left atrial pressure. Right Ventricle Mildly dilated right ventricle with normal systolic function. TAPSE is normal, 2.1 cm. Left Atrium Severely dilated left atrium. Right Atrium Dilated right atrium. Atrial Septum Appears intact. Aortic Valve Calcified, tricuspid aortic valve with mild aortic stenosis. Pulmonic Valve Normal pulmonic valve with trace insufficiency. Mitral Valve Calcified mitral valve annulus without stenosis. Mild mitral valve regurgitation. Tricuspid Valve Mild to moderate tricuspid valve regurgitation. Mildly elevated pulmonary artery pressures, estimated PASP is 41 mmHg. Pericardium/Pleural No pericardial effusion. Inferior Vena Cava Dilated IVC with normal inspiratory collapse. Estimated right atrial pressure is 8 mmHg. Aorta The aortic root at the sinus of Valsalva is dilated, measuring 4.0 cm with an index of 2.18 cm/m2. The ascending aorta is dilated, measuring 3.5 cm with an index of 1.91 cm/m2. Calcified sinotubular junction and aortic arch. Left Ventricular Outflow Tract Name Value Normal LVOT 2D LVOT Diameter 1.9 cm LVOT Doppler LVOT Peak Velocity 1.07 m/s LVOT Peak Gradient 5 mmHg LVOT Mean Gradient 2 mmHg LVOT VTI 23.50 cm LVOT VTI/AV VTI Ratio 0.43 LVOT Stroke Volume 67.01 ml LVOT Stroke Volume Index 0.04 l/m2 LVOT Cardiac Output 4.49 l/min LVOT Cardiac Index 2.43 L/min/m2 Pulmonic Valve Name Value Normal PV 2D RVOT Diameter (2D) 2.9 cm 1.7-2.7 RVOT Doppler RVOT Peak Velocity 0.56 m/s PV Doppler PV Peak Velocity 1.02 m/s PV Regurgitation Doppler FL Peak Velocity 1.67 m/s Mitral Valve Name Value Normal MV Doppler MV PHT 78 ms MV Diastolic Function MV E Peak Velocity 0.82 m/s <=0.50 MV A Peak Velocity 1.15 m/s MV E/A 0.72 <=0.80 MV Decel Time 268 ms MV Annular TDI MV Septal s' Velocity 5.93 cm/s MV Septal e' Velocity 6.90 cm/s >=7.00 MV E/e' (Septal) 12.0 <=8.0 MV Lateral s' Velocity 6.53 cm/s MV Lateral e' Velocity 11.60 cm/s >=10.00 MV E/e' (Lateral) 7.11 <=8.00 MV e' Average 9.25 MV E/e' (Average) 9.53 <=14.00 Tricuspid Valve Name Value Normal TV Regurgitation Doppler TR Peak Velocity 2.89 m/s <=2.80 Estimated PAP/RSVP RA Pressure 8 mmHg <=5 PA Systolic Pressure 41 mmHg <40 PA Mean Pressure (FL Velocity) 19 mmHg TV Diastolic Function TV E Peak Velocity 0.47 m/s TV A Peak Velocity 0.35 m/s TV E/A 1.33 0.80-2.00 TV Decel Time 174 ms >=120 TV Annular TDI TV Lateral Estefania s' Velocity 15.5 cm/s 9.5-18.7 TV Lateral Estefania e' Velocity 9.2 cm/s <7.8 TV E/e' 5.11 2.00-6.00 Aorta Name Value Normal Ascending Aorta Sinus of Valsalva Diameter 4.0 cm 3.1-3.7 Sinus of Valsalva Index 2.18 cm/m2 1.50-1.90 Prox Asc Ao Diameter 3.5 cm 2.6-3.4 Prox Asc Ao Diameter Index 1.91 cm/m2 1.30-1.70 Thoracic Aorta Ao Arch Diameter 2.7 cm Desc Ao Peak Velocity 0.86 m/s Desc Ao Peak Gradient 3 mmHg Venous Name Value Normal IVC/SVC IVC Diameter (Insp 2D) 0.9 cm IVC Diameter (Exp 2D) 2.5 cm <=2.1 IVC Diameter Percent Change (2D) 63 % >=50 Aortic Valve Name Value Normal AV Doppler AV Peak Velocity 2.46 m/s <2.00 AV Peak Gradient 24 mmHg AV Mean Gradient 14 mmHg <20 AV VTI 54.57 cm AV Area (Cont Eq VTI) 1.2 cm2 >=2.0 AV Area Index (Cont Eq VTI) 0.66 cm2/m2 AV Area (Cont Eq Riky) 1.2 cm2 AV Area Index (Cont Eq Riky) 0.67 cm2/m2 AV V1/V2 Ratio 0.43 AV Regurgitation 2D LVOT Area 2.9 cm2 Ventricles Name Value Normal LV Dimensions 2D/MM IVS Diastolic Thickness (2D) 1.5 cm 0.6-1.0 LVID Diastole (2D) 4.0 cm 3.6-5.6 LVIW Diastolic Thickness (2D) 1.3 cm 0.6-1.0 LVID Systole (2D) 2.3 cm 2.5-4.0 LVOT Diameter 1.9 cm LV Mass (2D Cubed) 216.37 g 88.00-224.00 Relative Wall Thickness (2D) 0.65 LV Fractional Shortening/Ejection Fraction 2D/MM LV Fractional Shortening (2D) 43 % 25-43 LV Diastolic Volume (4C MOD) 95 ml LV Diastolic Volume (2C MOD) 103 ml LV Diastolic Volume (BP MOD) 99 ml 62-150 LV Diastolic Volume Index (BP MOD) 53.40 ml/m2 34.00-74.00 LV Systolic Volume (BP MOD) 44 ml 21-61 LV Systolic Volume Index (BP MOD) 23.54 ml/m2 11.00-31.00 LV EF (BP MOD) 56 % 57-68 LV SV (BP MOD) 55.27 ml RV Dimensions 2D/MM RV Basal Diastolic Dimension 4.3 cm 2.5-4.1 TAPSE 2.1 cm >=1.7 Atria Name Value Normal LA Dimensions LA Area (4C) 26.5 cm2 LA Length (4C) 6.6 cm LA Area (2C) 24.8 cm2 LA Length (2C) 5.8 cm LA Volume (4C A-L) 90.45 ml LA Volume (2C A-L) 90.01 ml LA Volume (BP A-L) 96 ml 18-58 LA Volume Index (BP A-L) 52.00 ml/m2 <=34.00 RA Dimensions RA Area (4C) 21.1 cm2 <=18.0 Final Signed by:DO Quintanilla Jason D Signed (Electronic Signature):12/05/2023 3:15 p Social History Social History Type Response Smoking Status Never smoked cigaret rickey Sex Male Patient Care team information Care Team Personnel Name: DO Molina Franklin J Position: Physician - Family Med Member Role: Primary Care Provider Address: Address: [address] [place] [address] Care Team Related Persons Name: LIZ JIMENEZ Address: home [address] [place] [phone]
[2024-05-27] MEDS: FAMOTIDINE 20 MG TAB PO SCH (08:50)
[2024-05-27] MEDS: ASCORBIC ACID 500 MG TAB PO SCH (08:50)
[2024-05-27] MEDS: predniSONE 1 MG TAB PO SCH (08:50)
[2024-05-27] MEDS: CETIRIZINE HCL 10 MG TABLET PO SCH (08:50)
[2024-05-27] MEDS: ASPIRIN 81 MG ECTAB PO SCH (08:50)
[2024-05-27] MEDS: amLODIPine BESYLATE 5 MG TAB PO SCH (08:50)
[2024-05-27] MEDS: MULTIVITAMIN TAB PO SCH (08:50)
[2024-05-27] MEDS: APIXABAN 5 MG TABLET PO SCH (08:50)
--- NOTE | 2024-05-27 09:52 | XCELERA ---
[id number] \\[email or web address]_PDF_Reports\[id number]
[2024-05-27] MEDS ORDERED: ARTIFICIAL TEARS OPB PRN (10:02)
[2024-05-27 11:42] VITALS: BP 110/69; PULSE 82; TEMP 98.4; O2SAT 92
--- NOTE | 2024-05-27 11:43 | Cardiology Consultation ---
Date of Consultation May 27, 2024 Assessment & Plan (1) Pleuritic chest pain: 2. Atrial fibrillationasymptomatic, rate controlled, [id number] 3 3. Mild aortic stenosisstable echo 05/2024 4. Mild RV dilation, mild pulmonary [id number] echo 05/2024, previously >40 mmHg on prior echo. Prior question of sarcoid. No sleep study 5. HypertensionCCB 6. 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 Chronic steroid uselow-dose prednisone for ? Arthritis 8. Coronary artery calcification on CTA Presented with new mild pleuritic chest pain found to be a new rate controlled atrial fibrillation. Did have mild pulmonary congestion on chest CTA. Being treated for possible pneumonia. No evidence of PE. Possibly musculoskeletal, pleurisy. Do not feel chest pain related to AF. No ACS Currently chest pain resolved. No real congestion on exam. Feeling well Overall do not feel needs additional cardiac testing at this time. We talked about his new diagnosis of atrial fibrillation. He is adequately rate controlled off AV eduin agents. No plans for rhythm control at this time. Talked about rationale for anticoagulation and agree with long-term Eliquis. From a cardiac standpoint OK with discharge today. Recommendations: Home on Eliquis 5 mg twice daily Stop home aspirin Discussed salt restriction, daily weights Intermittent surveillance of mild aortic stenosis Consider outpatient sleep study with PCP Follow-up with me in 1 month. If having symptoms potentially related to AF at that time could consider cardioversion History of Present Illness Attending Physician: Mick Feliciano MD History of Present Illness Mr. Lemos is a very pleasant 84-year-old man seen today in the setting of pleuritic chest pain, atrial fibrillation and mild aortic stenosis. At baseline patient is active, yesterday he did his regular exercise routine at the [facility] including stationary bike and resistance training and felt well. Later in the afternoon while sitting in his recliner noted new pleuritic chest pain. Reports some brief discomfort in his left armpit the night before but otherwise has never had similar pain. No real associated shortness of breath. No palpitations. No presyncope denies any recent fevers, chills or other changes to his health. Presented to ED, noted to have low-grade fever. ECG showed rate controlled atrial fibrillation with no ST changes. HS TropI negative x 2. BNP 375. Chest CTA negative for PE, did have been pulmonary edema, trace pleural effusions. Telemetry has shown persistent rate controlled AF. Echo today showed mild aortic stenosis, normal LV function. Mildly dilated RV with normal function and borderline pulm hypertension estimated PASP 35-40, normal CVP (echo unchanged from 11/2023). Treated with IV antibiotics, Solu-Medrol overnight. Started on Eliquis. Today reports feeling well pleuritic chest pain resolved. Past medical history: B-cell lymphoproliferative disorder with chronic anemia, hypertension, dyslipidemia GERD. OA post total hip, total knee replacement. Reports being on chronic steroids for arthritis. In the chart there is also mention of pulmonary sarcoidosis. Social history: Lives with his in [place]. Retired, previously worked at [employer]. Also had a [employer] farm. Non-smoker. Allergies Allergy/AdvReac Type Severity Reaction Status Date / Time grass pollen-perennial rye, Allergy Mild TREE/GRASS-ITCHY Verified 11/12/21 15:18 standar EYES, STUFFY NOSE iodine Allergy Mild RASH WITH Verified 11/12/21 15:18 TOPICAL mustard Allergy Mild REACTION Verified 11/12/21 15:18 TO PATCH TEST-DOESN'T EAT Penicillins Allergy Unknown UNKNOWN Verified 11/12/21 15:18 adhesive AdvReac Mild REDNESS Verified 11/12/21 15:18 SKIN WITH SOME BANDAIDS Home Medications Medication Instructions Recorded Confirmed Type acetaminophen 500 mg tablet 1,000 mg PO BID 09/15/20 11/12/21 History (Tylenol Extra Strength) ascorbic acid (vitamin C) 500 mg 500 mg PO QAM 09/15/20 11/12/21 History tablet (Vitamin C) cetirizine 10 mg tablet (Zyrtec) 10 mg PO QAM 09/15/20 11/12/21 History finasteride 5 mg tablet 5 mg PO QPM 09/15/20 11/12/21 History multivitamin 1 tab PO QAM 09/15/20 11/12/21 History prednisone 1 mg tablet 2 mg PO QAM 09/15/20 11/12/21 History amlodipine 2.5 mg tablet 2.5 mg PO QAM 09/14/21 11/12/21 History famotidine 20 mg tablet (Pepcid) 20 mg PO QAM 09/14/21 11/12/21 History naphazoline 0.012 % eye drops 1 drp ophthalmic (eye) TID PRN 09/14/21 11/12/21 History Allergy Symptoms oxycodone-acetaminophen 5 mg-325 2 tab PO Q6H PRN pain #24 tabs 10/12/21 11/12/21 Rx mg tablet (Percocet) aspirin 81 mg tablet,delayed 81 mg PO DAILY 11/12/21 11/12/21 History release mxuooxunzmt-aae-ypyvledpu-hrb 2 tab PO BID 11/12/21 11/12/21 History 149-hyalur 500 mg-500 mg-66.7 mg tablet (Yedykglimvv-Jefsdzddrol-KMN (with antiox)) meloxicam 7.5 mg tablet 7.5 mg PO BID 11/12/21 11/12/21 History warfarin 2 mg tablet 2 mg PO DAILY 11/12/21 11/12/21 History Patient History Medical History Anemia BPH (benign prostatic hypertrophy) with urinary retention Cardiomegaly "Mild" per 09/25/21 CXR Chronic steroid use Pt states for his arthritis - he is unsure if hx rheumatoid arthritis (no cervical extension/flexion limitations per PAT visit 09/25/21) DJD (degenerative joint disease) of hip GERD (gastroesophageal reflux disease) Hearing deficit History of kidney stones Hyperlipidemia Hypertension Monoclonal gammopathy Osteoarthritis Pulmonary sarcoidosis Scoliosis Surgical History History of appendectomy History of bilateral cataract extraction History of carpal tunnel surgery of left wrist History of colonoscopy History of cystoscopy History of detached retina repair x2--1 on each eye History of ear surgery bilateral--at the age of 2 "to open them up" History of esophagogastroduodenoscopy (EGD) History of lithotripsy History of repair of rotator cuff History of revision of total replacement of right knee joint Revision right TKA with polyexchange of tibia + patella (10/30/17): SAB at L3- 4 (x1 attempt) + PNB at [facility]. No issues per post-op anesthesia progress note. History of tonsillectomy and adenoidectomy History of tooth extraction partial lower denture History of total left hip arthroplasty History of total left knee replacement (TKR) History of total right knee replacement (TKR) History of wisdom tooth extraction Status post trigger finger release right middle finger Family History Mother Colon cancer Brother Colon cancer Other Family history non-contributory No family history of adverse response to anesthesia Social History Smoking Status: Never smoker Second Hand Exposure: No; Do You Dip or Chew Tobacco: No; Hx Alcohol Use: Yes Alcohol type: hard liquor Hx Substance Use: No Preferred Language: Turkish Communication Ability: Effective Pocketbook Maker Required: No Beliefs That Will Affect Care: None marital status: Current Living Situation: Spouse current occupational status: retired Other Information That Helps Us Care for You: No Feels Safe at Home: Yes Safety Concerns: Feels Safe At This Time Assistive Devices: Denture - Lower, Glasses and Walker Assistive Devices Comment: partial lower dentures Review of Systems Review of Systems: All systems reviewed & are unremarkable except as noted in HPI & below Physical Exam Physical Exam: General: Comfortable HEENT: Sclerae anicteric Lungs: Scant crackles at bases bilaterally right greater than left Cardiac: Irregular irregular, 2 out of 6 systolic ejection murmur Vascular: 2+ radial bilaterally Abdomen: Soft, nontender Extremities: Well perfused, no peripheral edema Neuro: Nonfocal Psych: Alert orient x3, normal affect and mood Results & Data Vital Signs (Past 12 Hours) Vital Signs Temp Pulse Pulse Resp BP BP Pulse Ox 05/27/24 08:03 05/27/24 07:46 99.7 F H 90 18 129/75 94 05/27/24 02:45 05/27/24 02:42 97.9 F 92 H 16 110/67 97 05/27/24 02:21 68 20 121/85 05/27/24 02:00 83 O2 Del Method O2 Flow Rate 05/27/24 08:03 Nasal Cannula 2 05/27/24 07:46 Nasal Cannula 2 05/27/24 02:45 Nasal Cannula 2 05/27/24 02:42 Nasal Cannula 2 05/27/24 02:21 Nasal Cannula 2 05/27/24 02:00 PG Care Time/CCT Total # of Minutes Spent Total Time Spent with Patient: Total time spent is greater than 50% in coordination of care (as documented) at patient's floor/unit and/or counseling patient: Coding Level of Care Code 43970 INT INP/OBS CARE MIN Diagnoses Pleuritic chest pain R07.81
--- NOTE | 2024-05-27 13:34 | Discharge Summary ---
Date of Service May 27, 2024 Admission HPI Per Admitting Provider Patient is a 84-year-old male with past medical history of B-cell lymphoproliferative disorder, aortic stenosis, hypertension, GERD, dyslipidemia who presents to the hospital with chest pain. Patient states that around 2 AM he had pain under his armpit and he cannot get comfortable in bed. He then woke up and the pain resolved and he went to the line where he rode bike for 40 minutes. He then started to have issues around 3 PM or the top of his chest felt sharp when he laid down on his recliner. States that the pain happened every time he was breathing. Denies any fevers though states that he had some c hills. Denies any cough or shortness of breath. States that the pain started when laying on his back but denies any shortness of breath. Denies any anticoagulation use. Rates his pain a 6 out of 10. Denies any headaches or abdominal pain. Admission Exam (Per Admitting) Constitutional The patient is awake, alert and oriented 3, well developed and well nourished, normocephalic and atraumatic, lying in bed and in no acute distress. HEENT--PERRL, EOMI, mucous membranes and oropharynx mildly dry Neck--supple. No JVD. No bruits. Thyroid normal, trachea midline, no adenopathy. Heart--normal S1 and S2. No murmurs, rubs or gallops. Lungs--clear bilaterally, no respiratory distress, no accessory muscle use. Abdomen--normal bowel sounds and soft. Extremities--no cyanosis or clubbing. No edema. Dermatologic--normal skin turgor, normal color, no abnormal lymph nodes, no rash. Neurologic--cranial nerves II through XII grossly intact. Rheumatologic--normal range of motion. Psychiatric--normal affect. Discharge Data Consultations 05/26/24 23:10 ED Decision to Admit Stat 05/27/24 01:00 Consult Cardiology Routine Hospital Course (1) Atrial fibrillation: (2) Chest pain: (3) B-cell lymphoproliferative disorder: (4) Hypertension: Plan Assesement and plan: Patient presents with chest pain that gets worse with deep breaths. -Pro-Ambrose negative, TSH negative, lipase negative. -BNP of 375. -Respiratory BioFire negative. -Chest x-ray showed stable chronic changes. -Chest CTA showed no pulmonary embolism, interseptal thickening concerning for pulmonary edema. Trace bilateral pleural effusions and cardiomegaly. -Evaluated by cardiology, deemed likely non cardiac -No further work up neccessary Atrial fibrillation: -Patient with new onset A-fib that was previously seen. Started on metoprolol tartrate 25 mg twice daily and will increase as needed. -Started on Eliquis 5 mg twice daily. -Cardiology consulted. -Recommend continue eliquis, discontinue ASA -Follow up outpatient in a month for cardioversion if neccessary Pulmonary edema: -Mild Pulmonary edema seen on chest CTA. B-cell lymphoproliferative disorder: -Chronic anemia -Follows with hematology. Coding Level of Care Code 14467 INP/OBS DISCH >30 MIN Diagnoses Atrial fibrillation I48.91 Chest pain R07.9 B-cell lymphoproliferative disorder D47.9 Hypertension I10 Time Spent (min) 35
[2024-05-27] MEDS ORDERED: FINASTERIDE 5 MG TAB PO SCH (21:00)
--- NOTE | 2024-05-27 21:32 | Electrocardiogram Report ---
Test Reason : Blood Pressure : */* mmHG Vent. Rate : 92 BPM Atrial Rate : * BPM P-R Int : * ms QRS Dur : 90 ms QT Int : 358 ms P-R-T Axes : * -34 40 degrees QTcB Int : 442 ms Atrial fibrillation Left axis deviation Abnormal ECG When compared with ECG of 25-Sep-2021 12:09, Atrial fibrillation has replaced Sinus rhythm Vent. rate has increased by 34 bpm Confirmed by Kofi Sandoval ([id number]) on 05/27/2024 9:31:23 PM Referred By: Confirmed By: Kofi Sandoval
== END 2024-05-27 14:56 | disposition home or self-care (01) | DRG 309 ==
LOC: ED 16:08 → SUATTDRO 05-27 00:07 → EDINP 05-27 00:07 → INTOOBSV 05-27 00:07 → 4W 05-27 02:21